=== PATIENT | female | born 1965 | race Two or more races ===

== ENCOUNTER → 2020-02-17 09:21 | Outpatient (BNVA) | payer MEDICAID, SELFPAY | PROVIDERS: PCP Internal Medicine; Referring Provider Internal Medicine; Visit Provider Dietitian, Registered | DX: Z76.89 Persons encountering health services in other specified circumstances (principal) ==

== ENCOUNTER → 2020-02-24 08:05 | Outpatient (BNVA) | payer MEDICAID, SELFPAY | PROVIDERS: PCP Internal Medicine; Referring Provider Internal Medicine; Visit Provider Dietitian, Registered | DX: Z76.89 Persons encountering health services in other specified circumstances (principal) ==

== ENCOUNTER 2021-08-07 15:27 | Outpatient (REF) | payer MEDICAID, SELFPAY ==
--- NOTE | ~2021-08-07 | MM_ITS ---
EXAMINATION: MM SCREENING DIGITAL BREAST TOMOSYNTHESIS, BILATERAL CLINICAL INFORMATION: Screening. Asymptomatic. The lifetime risk of breast cancer based on the Tyrer-Cuzick Model is 6%. COMPARISON: Mammography: 02/24/2016, 08/23/2015, 02/21/2015, 02/14/2015 TECHNIQUE: Digital breast tomosynthesis is performed in both the craniocaudal and mediolateral oblique views along with computer-aided detection (CAD). Synthesized 2D images are generated from the tomosynthesis. FINDINGS: The breasts are heterogeneously dense, which may obscure small masses (ACR BI-RADS breast composition Category c). Breast tissue composition borders on average fibroglandular. Parenchymal pattern is similar to prior studies. There are no significant masses, abnormal calcifications, or other abnormalities. No developing density. The axilla and skin contours are unremarkable. MM/MM tomosynthesis screening BI IMPRESSION: No mammographic evidence of malignancy. ASSESSMENT: BI-RADS 1: Negative RECOMMENDATION: Routine annual mammography screening. This patient's information was entered into a reminder system with a target due date for their next mammogram.
== END 2021-08-07 15:28 | disposition home or self-care (01) ==
LOC: HO.MAMMO 15:27
PROVIDERS: Visit Provider Internal Medicine
DX: Z12.31 Encounter for screening mammogram for malignant neoplasm of breast (principal)
CPT/HCPCS: 77063; 77067

== ENCOUNTER 2022-08-13 14:54 | Outpatient (REF) | payer MEDICAID, SELFPAY ==
--- NOTE | ~2022-08-13 | MM_ITS ---
EXAMINATION: MM SCREENING DIGITAL BREAST TOMOSYNTHESIS, BILATERAL CLINICAL INFORMATION: Screening. Asymptomatic. The lifetime risk of breast cancer based on the Tyrer-Cuzick Model is 5%. COMPARISON: Mammography: 08/07/2021, 02/24/2016 TECHNIQUE: Digital breast tomosynthesis is performed in both the craniocaudal and mediolateral oblique views along with computer-aided detection (CAD). Synthesized 2D images are generated from the tomosynthesis. FINDINGS: The breasts are heterogeneously dense, which may obscure small masses (ACR BI-RADS breast composition Category c). There are no significant masses, abnormal calcifications, or other abnormalities. There are minor stable bilateral asymmetries. No developing density or architectural abnormality. The axilla and skin contours are unremarkable. No significant changes. MM/MM tomosynthesis screening BI IMPRESSION: No mammographic evidence of malignancy. ASSESSMENT: BI-RADS 2: Benign RECOMMENDATION: Routine annual mammography screening. This patient's information was entered into a reminder system with a target due date for their next mammogram.
== END 2022-08-13 14:55 | disposition home or self-care (01) ==
LOC: HO.MAMMO 14:54
PROVIDERS: PCP Internal Medicine; Visit Provider Internal Medicine
DX: Z12.31 Encounter for screening mammogram for malignant neoplasm of breast (principal)
CPT/HCPCS: 77063; 77067

== ENCOUNTER 2022-11-19 08:29 | Outpatient (REF) | payer MEDICAID, SELFPAY ==
[2022-11-19 14:50] LABS: MANUAL DIFF FLAG NO
[2022-11-19 14:58] LABS: Basophils Percent Auto 0.4 % (0-2); Eosinophils Absolute Auto 0.2 X10*3/uL (0.0-0.4); Eosinophils Percent Auto 3.5 % (0-4); Hematocrit 38.4 % (37.0-47.0); Hemoglobin 11.8 g/dl (12.0-16.0); Imm Gran Abs Auto 0.02 X10*3/uL (0.00-0.03); Imm Gran Pct Auto 0.4 % (0.0-0.4); Lymphocytes Absolute Auto 1.5 X10*3/uL (1.2-4.9); Lymphocytes Percent Auto 34.1 % (20-40); Mean Corpuscular HGB Conc 30.7 g/dl (31.0-35.0); Mean Corpuscular Hemoglobin 27.1 pg (27.0-33.0); Mean Corpuscular Volume 88.1 fL (80.0-98.0); Monocytes Absolute Auto 0.2 X10*3/uL (0.1-1.2); Monocytes Percent Auto 5.3 % (2-11); Neutrophils Absolute Auto 2.5 x10*3/uL (2.0-8.3); Neutrophils Percent Auto 56.3 % (45-73); Platelet Count 201 X10*3/uL (160-400); Red Blood Count 4.36 X10*6/uL (4.20-5.50); Red Cell Distribution Width 13.8 % (11.0-16.0); White Blood Count 4.5 X10*3/uL (4.8-10.8)
[2022-11-19 15:47] LABS: Alanine Aminotransferase 11 U/L (0-31); Albumin Level 3.7 g/dL (3.5-5.0); Alkaline Phosphatase 62 U/L (39-117); Anion Gap 12 (12-20); Aspartate Amino Transferase 18 U/L (5-31); Bilirubin Total 0.6 mg/dL (0.0-1.0); Blood Urea Nitrogen 6 mg/dL (9-16); Carbon Dioxide 27 mmol/L (22-29); Chloride 110 mmol/L (96-108); Cholesterol 187 mg/dL; Estimated Glomerular Filt Rate > 60; Glucose Fasting 49 mg/dL (60-99); HDL Cholesterol 55 mg/dL; LDL Cholesterol Calculated 123 mg/dl; Potassium 3.8 mmol/L (3.3-5.1); Sodium 145 mmol/L (135-145); Total Protein 6.7 g/dL (6.5-8.0); Triglycerides 47 mg/dL
== END 2022-11-19 08:30 | disposition home or self-care (01) ==
LOC: HO.CHCLDS 08:29
PROVIDERS: Visit Provider Internal Medicine
DX: Z00.00 Encounter for general adult medical examination without abnormal findings (principal)
CPT/HCPCS: 36415; 80053; 80061; 85025

== ENCOUNTER → 2023-09-02 14:30 | Outpatient (BNV) | payer MEDICAID, SELFPAY | PROVIDERS: PCP Internal Medicine; Visit Provider Radiology Diagnostic Radiology | DX: Z12.31 Encounter for screening mammogram for malignant neoplasm of breast (principal) | CPT/HCPCS: 77063; 77067 ==

== ENCOUNTER 2023-09-02 14:36 | Outpatient (REF) | payer MEDICAID, SELFPAY ==
--- NOTE | ~2023-09-02 | MM_ITS ---
EXAMINATION: MM SCREENING DIGITAL BREAST TOMOSYNTHESIS, BILATERAL CLINICAL INFORMATION: Screening. Asymptomatic. COMPARISON: Mammography: This study is compared with prior exams dating back to 2016. TECHNIQUE: Digital breast tomosynthesis is performed in both the craniocaudal and mediolateral oblique views along with computer-aided detection (CAD). Synthesized 2D images are generated from the tomosynthesis. FINDINGS: There are scattered areas of fibroglandular density (ACR BI-RADS breast composition Category b). There are no significant masses, abnormal calcifications, or other abnormalities. MM/MM tomosynthesis screening BI IMPRESSION: No mammographic evidence of malignancy. ASSESSMENT: BI-RADS BI-RADS 1 - Negative RECOMMENDATION: Routine annual mammography screening. 1 year F/U This examination should not preclude the clinical evaluation of a suspicious palpable abnormality. This patient's information was entered into a reminder system with a target due date for their next mammogram.
== END 2023-09-02 14:37 | disposition home or self-care (01) ==
LOC: HO.MAMMO 14:36
PROVIDERS: PCP Internal Medicine; Visit Provider Internal Medicine
DX: Z12.31 Encounter for screening mammogram for malignant neoplasm of breast (principal)
CPT/HCPCS: 77063; 77067

== ENCOUNTER 2024-02-14 08:14 | Outpatient (REF) | payer MEDICAID, SELFPAY ==
[2024-02-14 14:11] LABS: MANUAL DIFF FLAG NO
[2024-02-14 14:16] LABS: Basophils Percent Auto 0.5 % (0-2); Eosinophils Absolute Auto 0.1 X10*3/uL (0.0-0.4); Eosinophils Percent Auto 2.7 % (0-4); Hematocrit 34.2 % (37.0-47.0); Hemoglobin 10.8 g/dl (12.0-16.0); Imm Gran Abs Auto 0.02 X10*3/uL (0.00-0.03); Imm Gran Pct Auto 0.5 % (0.0-0.4); Lymphocytes Absolute Auto 1.9 X10*3/uL (1.2-4.9); Lymphocytes Percent Auto 42.3 % (20-40); Mean Corpuscular HGB Conc 31.6 g/dl (31.0-35.0); Mean Corpuscular Hemoglobin 27.6 pg (27.0-33.0); Mean Corpuscular Volume 87.5 fL (80.0-98.0); Mean Platelet Volume 12.4 fL (9.4-12.3); Monocytes Absolute Auto 0.3 X10*3/uL (0.1-1.2); Monocytes Percent Auto 7.3 % (2-11); Neutrophils Absolute Auto 2.1 x10*3/uL (2.0-8.3); Neutrophils Percent Auto 46.7 % (45-73); Platelet Count 180 X10*3/uL (160-400); Red Blood Count 3.91 X10*6/uL (4.20-5.50); Red Cell Distribution Width 14.5 % (11.0-16.0); White Blood Count 4.4 X10*3/uL (4.8-10.8)
[2024-02-14 14:42] LABS: Anion Gap 9 (12-20); Blood Urea Nitrogen 13 mg/dL (9-16); Calcium 9.3 mg/dL (8.4-10.2); Carbon Dioxide 30 mmol/L (22-29); Chloride 108 mmol/L (96-108); Cholesterol 150 mg/dL (<200); Estimated Glomerular Filt Rate > 60; Glucose Fasting 65 mg/dL (60-99); HDL Cholesterol 58 mg/dL (>40); LDL Cholesterol Calculated 86 mg/dL (<100); Potassium 3.8 mmol/L (3.3-5.1); Sodium 143 mmol/L (135-145); Triglycerides 33 mg/dL (<150)
[2024-02-14 14:52] LABS: Creatinine Urine 34.04 mg/dL; Microalbumin Urine < 5.0 mg/L
[2024-02-14 15:00] LABS: TSH reflex Free T4 3.13 uIU/mL (0.32-4.0)
== END 2024-02-14 08:15 | disposition home or self-care (01) ==
LOC: HO.CHCLDS 08:14
PROVIDERS: Visit Provider Internal Medicine
DX: Z00.00 Encounter for general adult medical examination without abnormal findings (principal); I10 Essential (primary) hypertension; D12.3 Benign neoplasm of transverse colon; E16.2 Hypoglycemia, unspecified; G44.229 Chronic tension-type headache, not intractable
CPT/HCPCS: 36415; 80048; 80061; 82570; 84443; 85025

== ENCOUNTER 2024-04-01 08:44 | Outpatient (REF) | payer MEDICAID, SELFPAY ==
[2024-04-01 14:43] LABS: Iron 87 mcg/dL (30-160); Percent Iron Saturation 25 % (15-50); Total Iron Binding Capacity 344 mcg/dL (228-428); Unsaturated Iron Binding 257 ug/dL
[2024-04-01 14:57] LABS: Ferritin 14 ng/mL (10-250)
[2024-04-01 15:08] LABS: Folate 14.8 ng/mL (> or = 4.0); Vitamin B12 568 pg/mL (200-900)
== END 2024-04-01 08:45 | disposition home or self-care (01) ==
LOC: HO.CHCLDS 08:44
PROVIDERS: Visit Provider Internal Medicine
DX: D50.9 Iron deficiency anemia, unspecified (principal)
CPT/HCPCS: 36415; 82607; 82728; 82746; 83540

== ENCOUNTER 2024-08-25 16:17 | Outpatient (REF) | payer MEDICAID, SELFPAY ==
--- OUTSIDE RECORDS SUMMARY | 2024-08-25 18:47 | XMS_ITS ---
Author Organization [facility] Address [address] [facility] 7t [place] [address] Care Team Providers Care District Loss Prevention Manager Name Role Phone Marv Jones MD Primary Care Provider [phone] CHW Complex Status:Identified (Enrolling) Start date:08/14/2024 Enrollment reason:Referred by provider Overview SDOH- SDOH positive. Patient looking for assistance with transportation. Case Team Name Relationship Phone Rufina Good (Responsible Staff) Continued Care and Services Coordination
--- OUTSIDE RECORDS SUMMARY | 2024-08-25 18:47 | XMS_ITS | Encounter Summary ---
Author Organization [facility] Address [address] [facility] 7t [place] [address] Care Team Providers Care Charm Filter Operator Helper Name Role Phone Marv Jones MD Primary Care Provider [phone] Encounter Details Date Type Department Care Team (Late st Contact Info) Description 12/09/2023 Orders Only [facility] [address] [place] [address] ProviderKhanh MD Social History Tobacco Use Types Packs/Day Years Used Date Smoking Tobacco: Never Passive Smoke Exposure: Never Smokeless Tobacco: Never Alcohol Use Standard Drinks/Week Comments Never 0 (1 standard drink = 0.6 oz pur e alcohol) Depression Answer Date Recorded Patient Health Questionnaire-9 Score 7 07/18/2023 Patient Health Questionnaire-9 Score 7 07/18/2023 Last PHQ-9: Questionnaire Data Not on file 0 07/18/2023 Housing Stability Answer Date Recorded What is your housing situation today? I have fernandocecile melton 07/10/[address] you li ve. Do you have problems with any of the following? Pests such as bugs, ants, or mice 07/10/2023 Food Insecurity Answer Date Recorded Within the past 12 months, y ou worried that your food would run out before you got money to buy more: Sometimes True 2023 Within the past 12 months,th e food you bought just didn't last and you didn't have enough money to get more: Sometimes True 07/10/2023 Transportation Answer Date Recorded In the past 12 months, has l ack of transportation kept you from medical appts, meetings, work or from getting things needed for daily living? No 02/18/2023 Utilities Answer Date Recorded In the past 12 months, has t he electric, gas, oil or water company threatened to shut off services in your home? No 02/18/2023 Depression Answer Date Recorded Patient Health Questionnaire-2 Score 3 07/18/2023 Comments No Sex and Gender Information Value Date Recorded Sex Assigned at Female 03/05/2022 10:21 AM EDT Legal Sex Female 10:21 AM EDT Gender Identity Female 03/05/2022 10:21 AM EDT Sexual Orientation Straight 03/05/2022 10 :21 AM EDT documented as of this encounter Plan of Treatment Upcoming Encounters Date Type Department Care Team (Late st Contact Info) Description 12/03/2024 3:15 PM EDT Office Visit [facility] MED & PEDS [address] [place] [address] Marv Jones MD [address] [place] [address] documented as of this encounter Procedures Procedure Name Priority Date/Time Associated Diagnosis Comments COLONOSCOPY Routine 10/12/2023 2:40 PM EDT COLONOSCOPY Routine 10/10/2023 2:43 PM EDT documented in this encounter Results * Colonoscopy (10/12/2023 2:40 PM EDT) Anatomical Region Laterality Modality Endoscopy Historical Provider ENDOSCOPY PROCEDURE ORDER LUISITO Final Result * Colonoscopy (10/10/2023 2:43 PM EDT) Anatomical Region Laterality Modality Endoscopy us Historical Provider ENDOSCOPY PROCEDURE ORDER LUISITO Final Result documented in this encounter Visit Diagnoses Not on filedocumented in this encounter Additional Health Concerns Assessment Noted Time PHQ-9 Depression Total Score: 7 07/18/19 24 3:25 PM EDT documented as of this encounter Care Teams Charm Filter Operator Helper Relationship Specialty Start Date End Date Marv Jones MD [address] [place] [address] PCP - General Internal Medicine 05/06/18 documented as of this encounter
--- OUTSIDE RECORDS SUMMARY | 2024-08-25 18:47 | XMS_ITS | Encounter Summary ---
Author Organization [employer] [facility] Address [address] [facility] [address] [place] [address] Care Team Providers Care Saturator Tender Name Role Phone Marv Jones MD Primary Care Provider [phone] Reason for Visit * Reason Onset Date Comments Appointment Request 10/21/2023 Encounter Details Date Type Department Care Team ([facility] st Contact Info) Description 10/21/2023 Telephone [facility] MEDICINE [address] [place] [address] Marv Jones MD [address] [place] [address] Appointment Request Social History Tobacco Use Types Packs/Day Years [...] is your housing situation today? I have fernando melton 07/10/[address] you [...] AM EDT documented as of this encounter Miscellaneous Notes * Telephone Encounter - Jammie Case - 10/21/2023 2:24 PM EDT Tc from pt requesting up appt with PCP stated Dr Jones told her to contact clinic around this time to make an appt. documented in this encounter Plan of Treatment Upcoming Encounters Date Type Department Care Team (Late st Contact Info) Description 12/03/2024 3:15 PM EDT Office Visit [facility] MED & PEDS [address] [place] [address] Marv Jones MD [address] [place] [address] documented as of this encounter Visit Diagnoses Not on filedocumented in this encounter Additional Health Concerns Assessment Noted Time PHQ-9 Depression Total Score: 7 07/18/19 24 3:25 PM EDT documented as of this encounter Care Teams Saturator Tender Relationship Specialty Start Date End Date Marv Jones MD [address] [place] [address] PCP - General Internal Medicine 05/06/18 documented as of this encounter
--- OUTSIDE RECORDS SUMMARY | 2024-08-25 18:47 | XMS_ITS | Encounter Summary ---
Author Organization [facility] Address [address] [place] [address] Care Team Providers Care Cosmetics And Toiletries Salesperson Name Role Phone Marv Jones MD Primary Care Provider [phone] Encounter Details Date Type Department Care Team (Late Contact Info) Description 05/03/2022 Orders Only [facility] MED & PEDS [address] [place] [address] Rama Mancilla, RN [address] [place], [place] [phone] Social History Tobacco Use Types Packs/Day Years Used Date Smoking Tobacco: Never Assessed Comments Unknown Sex and Gender Information Value Date Recorded Sex Assigned at Female 03/05/2022 10:21 AM EDT Legal Sex Female 10:21 AM EDT Gender Identity Female 03/05/2022 10:21 AM EDT Sexual Orientation Straight 03/05/2022 10 :21 AM EDT documented as of this encounter Plan of Treatment Upcoming Encounters Date Type Department Care Team (Late st Contact Info) Description 12/03/2024 3:15 PM EDT Office Visit [facility] MED & PEDS [address] [place] [address] Marv Jones MD [address] [place] [address] documented as of this encounter Visit Diagnoses Not on filedocumented in this encounter Care Teams Cosmetics And Toiletries Salesperson Relationship Specialty Start Date End Date Marv Jones MD [address] [place] [address] PCP - General Internal Medicine 05/06/18 documented as of this encounter
--- OUTSIDE RECORDS SUMMARY | 2024-08-25 18:48 | XMS_ITS | Encounter Summary ---
Author Organization [email or web address] Address [address] [facility] 7t [place] [address] Care Team Providers Care Relations Specialist Name Role Phone Marv Jones MD Primary Care Provider [phone] Encounter Details Date Type Department Care Team (Late st Contact Info) Description 03/05/2023 Abstract [facility] MEDICINE [address] [place] [address] Marv Jones MD [address] [place] [address] Social History Tobacco Use Types Packs/Day Years Used Date Smoking Tobacco: Never Passive Smoke Exposure: Never Smokeless Tobacco: Never Depression Answer Date Recorded Patient Health Questionnaire-9 Score 6 07/09/2022 Housing Stability Answer Date Recorded What is your housing situation today? I have fernando melton 02/18/[address] you li ve. Do you have problems with any of the following? None of the above 02/18/2023 Food Insecurity Answer Date Recorded Within the past 12 months, y ou worried that your food would run out before you got money to buy more: Never True 02/18/2023 Within the past 12 months,th e food you bought just didn't last and you didn't have enough money to get more: Never True Transportation Answer Date Recorded In the past [...] Answer Date Recorded Patient Health Questionnaire-2 Score 2 07/09/2022 Comments Unknown Sex and Gender Information Value [...] Description 12/03/2024 3:15 PM EDT Office Visit [facility] MED [facility] PEDS [address] [place] [address] Marv Jones MD [address] [place] [address] documented as of this encounter Procedures Procedure Name Priority Date/Time Associated Diagnosis Comments COLONOSCOPY Routine 08/23/2016 documented in this encounter Results * Hm Colonoscopy (08/23/2016) Colonoscopy Normal Normal Narrative Mima Sotelo - 08/23/2016 Recommended 5 year follow up us Historical Provider HEALTH MAINTENANCE Final Result documented in this encounter Visit Diagnoses Not on filedocumented in this encounter Additional Health Concerns Assessment Noted Time PHQ-9 Depression Total Score: 6 07/10/19 23 3:25 PM EST documented as of this encounter Care Teams Relations Specialist Relationship Specialty Start Date End Date Marv Jones MD [address] [place] [address] PCP - General Internal Medicine 05/06/18 documented as of this encounter
--- OUTSIDE RECORDS SUMMARY | 2024-08-25 18:48 | XMS_ITS | Encounter Summary ---
Author Organization [employer] [facility] Address [address] [facility] 7t [place] [address] Care Team Providers Care Stave Block Roller Name Role Phone Marv Jones MD Primary Care Provider [phone] Reason for Visit * Reason Comments Med Change Request Encounter Details Date Type Department Care Team ([facility] st Contact Info) Description 08/25/2024 Refill [facility]EDS [address] [place], [place] [phone] Marv Jones MD [address] [place] [address] Muscle cramps Social History Tobacco Use Types Packs/Day Years [...] housing situation today? I have fernando melton 08/14/[address] you li ve. Do you have problems with any of the following? None of the above 08/14/2024 Food Insecurity Answer Date Recorded Within the past 12 months, y ou worried that your food would run out before you got money to buy more: Never True 08/14/2024 Within the past 12 months,th e food you bought just didn't last and you didn't have enough money to get more: Never True 03/2025 Transportation Answer Date Recorded In the past 12 months, has l ack of transportation kept you from medical appts, meetings, work or from getting things needed for daily living? Yes, it has kept me from medical appointments or getting medications. 08/14/2024 Utilities Answer Date Recorded In the past 12 months, has t he electric, gas, oil or water company threatened to shut off services in your home? No 08/14/2024 Depression Answer Date Recorded Patient Health Questionnaire-2 Score 3 07/18/2023 Internet Access Answer Date Recorded Internet Access Q1 Yes 08/14/2024 Internet Access Q2 Not on file 08/14/2024 Comments No Sex and Gender Information Value [...] Description 12/03/2024 3:15 PM EDT Office Visit [facility] MED & PEDS [address] [place] [address] Marv Jones MD [address] [place] [address] documented as of this encounter Visit Diagnoses Diagnosis Muscle cramps documented in this encounter Additional Health Concerns Assessment Noted Time PHQ-9 Depression Total Score: 7 07/18/19 24 3:25 PM EDT documented as of this encounter Care Teams Stave Block Roller Relationship Specialty Start Date End Date Marv Jones MD [address] [place] [address] PCP - General Internal Medicine 05/06/18 documented as of this encounter
--- OUTSIDE RECORDS SUMMARY | 2024-08-25 18:48 | XMS_ITS | Encounter Summary ---
Author Organization [employer] Address [address] [facility] 7[address] [place] [address] Care Team Providers Care Vault Cashier Name Role Phone Marv Jones MD Primary Care Provider [phone] Encounter Details Date Type Department Care Team ([facility] st Contact Info) Description 02/21/2024 Orders Only [facility] MED & PEDS [address] [place], [place] [phone] Marv Jones MD [address] [place] [address] Microcytic anemia (Primary Dx) Social History Tobacco Use Types Packs/Day Years [...] Upcoming Encounters Date Type Department Care Team ([facility] st Contact Info) Description 12/03/2024 3:15 PM EDT Office Visit [facility] MED & PEDS [address] [place], [place] [phone] Marv Jones MD [address] [place], [place] [phone] documented as of this encounter Procedures Procedure Name Priority Date/Time Associated Diagnosis Comments VITAMIN B12/FOLATE, SERUM PANEL Routine 04/01/2024 8:46 AM EST Microcytic anemia IRON AND TOTAL IRON BINDING CAPACITY Routine 04/01/2024 8:46 AM EST Microcytic anemia FERRITIN Routine 04/01/2024 8:46 AM EST Microcytic anemia documented in this encounter Results * Vitamin B12/Folate, Serum Panel (04/01/2024 8:46 AM EST) Vitamin B12 568 200 - 900 pg/mL [facility] Comment:NORMAL 200-900 PG/ML INDETERMINATE 160-199 PG/ML DEFICIENT < 160 PG/ML Folate 14.8 > or = 4.0 ng/mL [facility] Comment:Reference Values:> o r = 4.0 ng/mL< 4.0 ng/mL suggests folate deficiency Methotrexate, aminopterin and folinic acid(leucovorin) are chemotherapeutic agents whose molecularstructures are similar to folate; therefore, the Architectfolate assay cannot be used for patients using these drugs. Blood Venous blood specimen / Unknown 04/01/2024 8:46 AM EST 04/01/2024 2:18 PM EST us Marv Jones MD LAB BLOOD ORDERABLES Final Result Performing Organization Address [facility] Co de Phone Number [facility] [address] [place] [phone] * Ferritin (04/01/2024 8:46 AM EST) Ferritin 14 10 - 250 ng/mL [facility] Blood Venous blood specimen / Unknown 04/01/2024 8:46 AM EST 04/01/2024 2:18 PM EST us Marv Jones MD LAB BLOOD ORDERABLES Final Result Performing Organization Address [facility] de Phone Number [facility] [address] [place] [phone] * Iron And Total Iron Binding Capacity (04/01/2024 8:46 AM EST) Iron 87 30 - 160 mcg/dL [facility] Total Iron Binding Capacity 344 228 - 428 mcg/dL [facility] Percent Iron Saturation 25 15 - 50 % [facility] Unsaturated Iron Binding 257 ug/dL [facility] Blood Venous blood specimen / Unknown 04/01/2024 8:46 AM EST 04/01/2024 2:18 PM EST Marv Jones MD LAB BLOOD ORDERABLES Final Result Performing Organization Address [facility] Co de Phone Number [facility] [address] [place] [phone] documented in this encounter Visit Diagnoses Diagnosis Microcytic anemia- Primary Unspecified iron deficiency anemia documented in this encounter Additional Health Concerns Assessment Noted Time PHQ-9 Depression Total Score: 7 07/18/19 24 3:25 PM EDT documented as of this encounter Care Teams Vault Cashier Relationship Specialty Start Date End Date Marv Jones MD [address] [place] [phone] PCP - General Internal Medicine 05/06/18 documented as of this encounter
--- OUTSIDE RECORDS SUMMARY | 2024-08-25 18:48 | XMS_ITS | Clinical Summary ---
Author Organization [facility] ity Address [address] [place] [address] Care Team Providers Care Cashier Ticket Selling Name Role Phone Marv Jones MD Primary Care Provider [phone] Allergies No known active allergies Medications WHEAT DEXTRIN ORAL Wheat Dextrin (Benefiber) Powder Patient sig: Take 4 g by mouth daily. Active dextran 70-hypromellos e (ARTIFICIAL TEARS) 0.1-0.3 % ophthalmic solution apply to the eye. Active SUMAtriptan (IMITREX) 25 mg tablet Take 25 mg by mouth daily as needed. May repeat dose once after 2 hours, if needed. Active estradioL (VIVELLE-DOT) 0.1 mg/[address] 1 Patch onto the skin twice a week. Active blood-glucose meter (BLOOD GLUCOSE MONITORING MISC) Active [facility] Active glucose blood test strip glucose blood test strips (ASCENSIA AUTODISC ,ONE TOUCH ULTRA TEST ) strip Patient si Strip by In Vitro route as needed. Active OMEPRAZOLE ORAL Take by mouth. Active carbamide peroxide (DEBROX OTIC) Place in ear(s). Active cholecalcifero l (VITAMIN D-3) 1,250 mcg (50,000 unit) capsuleIndicat ions:Postsurgi alexandrea malabsorption, not elsewhere classified TAKE 1 CAPSULE BY MOUTH ONE TIME PER WEEK 8 capsule 5 Active pantoprazole (PROTONIX) 20 mg EC tablet TAKE 1 TABLET BY MOUTH 2 TIMES DAILY FOR 90 DAYS. 180 tablet 5 Active ferrous sulfate 325 mg (65 mg elemental iron) tablet TAKE 1 TABLET BY MOUTH EVERY DAY 90 tablet 5 Active pantoprazole (PROTONIX) 20 mg EC tablet TAKE 1 TABLET BY MOUTH 2 TIMES DAILY FOR 90 DAYS. 180 tablet 5 025 Discontinued ferrous sulfate 325 mg (65 mg elemental iron) tablet TAKE 1 TABLET BY MOUTH EVERY DAY 90 tablet 5 025 Discontinued cholecalcifero l (VITAMIN D-3) 1,250 mcg (50,000 unit) capsuleIndicat ions:Postsurgi alexandrea malabsorption, not elsewhere classified TAKE 1 CAPSULE BY MOUTH ONE TIME PER WEEK 8 capsule 5 025 Discontinued cholecalcifero l (VITAMIN D-3) 1,250 mcg (50,000 unit) capsuleIndicat ions:Postsurgi alexandrea malabsorption, not elsewhere classified TAKE 1 CAPSULE BY MOUTH ONE TIME PER WEEK 8 capsule 5 025 Discontinued Active Problems Problem Noted Date Diagnosed Date Class 1 obesity due to exces s calories with body mass index (BMI) of 33.0 to 33.9 in adult 04/17/2024 Medical History Medical History Date Comments Hypertension DX:Hypertension Obesity DX:Obesity Depression DX:Depression IFG (impaired fasting glucose) D X:IFG (impaired fasting glucose) Social History Tobacco Use Types Packs/Day Years Used Date Smoking Tobacco: Never Comments Unknown Sex and Gender Information Value Date Recorded Sex Assigned at Not on file Legal Sex Female 5:56 PM EST Gender Identity Not on file Sexual Orientation Not on file Obstetrics History Last Filed Vital Signs Vital Sign Reading Time Taken Comments Blood Pressure 145/90 02/27/2024 1:53 PM EDT Pulse 68 02/27/2024 1:53 PM EDT Temperature - - Respiratory Rate - - Oxygen Saturation - - Inhaled Oxygen Concentration - - Weight 78.5 kg (173 lb) 02/27/2024 1:53 PM EDT Height 160 cm (5' 3 ) 02/27/2024 1:53 PM EDT Body Mass Index 30.65 02/27/2024 1:53 PM EDT Plan of Treatment Upcoming Encounters Date Type Department Care Team (Late st Contact Info) Description 09/01/2024 1:15 PM EDT Office Visit Bariatric Surgery - [place] [facility] [address] [place] [address] Lindsey Silva MD 175 [facility] [address] [place] [address] Health Maintenance Due Date Last Done Comments Breast Cancer Screening 1965 DTaP,Tdap,and Td Vaccines (1 - Tdap) 1984 Hepatitis B Vaccines (1 of 3 - 19+ 3-dose series) 1984 Cervical Cancer Screening: P ap Smear 1986 Pneumococcal Vaccine: 50+ Ye ars (1 of 1 - PCV) 08/05/2015 Zoster Vaccines (1 of 2) 08/05/2015 Colorectal Cancer Screening: Colonoscopy 04/12/2022 Depression Screening 04/12/2022 HIV Screening 04/12/2022 Hepatitis C Screening 04/12/2022 Social Influencers of Health Screening 04/12/2022 COVID-19 Vaccine ( - 2023-2 5 season) 2024 Influenza Vaccine (Season Ended) 2025 Cholesterol Screening (Lipid Panel) 02/13/2029 02/14/2024 RSV Immunization Adult Patie nts (1 - 1-dose 75+ series) 2040 HIB Vaccines Aged Out No longer eligi ble based on patient's age to complete this topic HPV Vaccines Aged Out No longer eligi ble based on patient's age to complete this topic Hepatitis A Vaccines Aged Out No long er eligible based on patient's age to complete this topic IPV Vaccines Aged Out No longer eligi ble based on patient's age to complete this topic MMR Vaccines Aged Out No longer eligi ble based on patient's age to complete this topic Meningococcal ACWY Vaccine Aged Out N o longer eligible based on patient's age to complete this topic Meningococcal B Vaccine Aged Out No l onger eligible based on patient's age to complete this topic Pneumococcal Vaccine: Pediat rics (0 to 5 Years) and At-Risk Patients (6 to 64 Years) Aged Out No longer eligi ble based on patient's age to complete this topic RSV Immunization Patients Un madalyn 20 months Aged Out No longer eligible b ased on patient's age to complete this topic Varicella Vaccines Aged Out No longer eligible based on patient's age to complete this topic Procedures Procedure Name Priority Date/Time Associated Diagnosis Comments LIPID PANEL Routine 02/14/2024 from Last 3 Months or Most Recently Relevant to Health Maintenance Results * Lipid panel (02/14/2024) LDL/HDL Ratio 0 Comment:No Interpretation, A bstracted Triglycerides 0 mg/dL Comment:No Interpretation, A bstracted Cholesterol 0 mg/dL Comment:No Interpretation, A bstracted HDL 0 mg/dL Comment:No Interpretation, A bstracted LDL Cholesterol 0 mg/dL Comment:No Interpretation, A bstracted Blood Venous blood specimen / Unknown Historical Provider LAB BLOOD ORDERABLES Eduarda l Result from Last 3 Months or Most Recently Relevant to Health Maintenance Care Teams Cashier Ticket Selling Relationship Specialty Start Date End Date Marv Jones MD [address] [place] [address] PCP - General Internal Medicine 07/12/21
--- OUTSIDE RECORDS SUMMARY | 2024-08-25 18:48 | XMS_ITS | Encounter Summary ---
Author Organization [facility] Address [address] [place] [address] Care Team Providers Care Salt Manager Name Role Phone Marv Jones MD Primary Care Provider [phone] Reason for Visit * Reason Comments Med Change Request Encounter Details Date Type Department Care Team (Late Contact Info) Description 09/28/[address] [facility] [address] [place] [address] Marv Jones MD [address] [place] [address] Primary osteoarthritis of right knee Social History Tobacco Use Types Packs/Day Years Used Date Smoking Tobacco: Never Passive Smoke Exposure: Never Smokeless Tobacco: Never Depression Answer Date Recorded Patient Health Questionnaire-9 Score 6 07/09/2022 Depression Answer Date Recorded Patient Health Questionnaire-2 [...] Encounters Date Type Department Care Team (Late Contact Info) Description 12/03/2024 3:15 PM EDT Office Visit [facility] [address] [place] [address] Marv Jones MD [address] [place] [address] documented as of this encounter Visit Diagnoses Diagnosis Primary osteoarthritis of right knee documented in this encounter Additional Health Concerns Assessment Noted Time PHQ-9 Depression Total Score: 6 07/10/19 23 3:25 PM EST documented as of this encounter Care Teams Salt Manager Relationship Specialty Start Date End Date Marv Jones MD [address] [place] [id number] PCP - General Internal Medicine 05/06/18 documented as of this encounter
--- OUTSIDE RECORDS SUMMARY | 2024-08-25 18:48 | XMS_ITS | Clinical Summary ---
Author Organization [employer] Address [address] [facility] 7[address] [place] [address] Care Team Providers Care Director Internal Communications Name Role Phone Marv Jones MD Primary Care Provider [phone] Allergies No known active allergies Medications Elastic Bandages & Supports (Knee Support Adjustable) miscIndications:P rimary osteoarthritis of right knee To use daily 1 each 09/29/19 23 Active glucose 4 g chewable tabletIndications :Hypoglycemia Chew 4 tablets (16 g) if needed for low blood sugar. 50 tablet 12 11/20/19 23 Active ursodiol (Actigall) 300 MG capsule TAKE 2 CAPSULES BY MOUTH DAILY FOR 180 DAYS. 01/02/20 23 Active topiramate (Topamax) 25 MG tabletIndications :Chronic tension-type headache, not intractable Take 1 tablet (25 mg) by mouth every 12 (twelve) hours. 60 tablet 11 01/01/20 24 2024 Active pantoprazole (ProtoNix) 20 MG EC tablet Take 1 tablet by mouth 2 times daily. 02/18/20 24 Active SUMAtriptan (Imitrex) 25 MG tablet Take 25 mg by mouth daily as needed. May repeat dose once after 2 hours, if needed. Active glucose blood (Precision QID Test) test strip glucose blood test strips (ASCENSIA AUTODISC ,ONE TOUCH ULTRA TEST ) strip Patient si Strip by In Vitro route as needed. Active ferrous sulfate 325 (65 Fe) MG tablet Take 1 tablet by mouth Once per day. 02/28/20 24 Active dextran 70-hypromellose (GenTeal Tears) 0.1-0.3 % ophthalmic solution apply to the eye. Active cholecalciferol (Vitamin D-3) 1.25 MG (34025 UT) capsule Take 50,000 Units by mouth 1 (one) time per week. 03/20/20 24 Active estradiol (Estrace) 0.1 MG/GM vaginal cream 1g vaginally twice a week 45 g 1 08/14/19 25 Active magnesium 30 MG tabletIndications :Muscle cramps Take 1 tablet (30 mg) by mouth Once per day. 30 tablet 08/26/19 25 2025 Active Multiple Vitamins-Minerals (Bariatric Multivitamins/Iro n) capsuleIndication s:H/O bariatric surgery Take 1 tablet by mouth daily 30 capsule 08/26/19 25 Active Multiple Vitamins-Minerals (BARIATRIC MULTIVITAMINS/IRO N PO) Take 1 tablet by mouth daily 2024 Discontinued(R eorder (will not trigger notification to Pharmacy)) estradiol (Estrace) 0.1 MG/GM vaginal cream 1g vaginally every night x 14 days, then 1g vaginally twice a week after that ongoing 45 g 1 08/27/19 24 2024 Discontinued(R eorder (will not trigger notification to Pharmacy)) Active Problems Problem Noted Date Diagnosed Date Adenomatous polyp of transverse colon 07/18/2023 COVID 05/22/2022 Assessment & Plan (05/22/2022 2:13 PM EST): Patient symptoms started on 05/20/22, refers last episode of fever/chills was on the morning. Currently she is experiencing bodyaches, headaches, loss of taste and cough. Will prescribe paxlovid risk vs benefits were discussed, told to maintain well hydrated and in case of worsening symptoms to visit er Acute cough 05/22/2022 Acute tension-type headache 05/22/2022 Impaired fasting glucose 11/21/2020 Hypertension 06/15/2013 Depressive disorder 06/15/2013 Obesity 06/15/2013 Encounters Date Type Department Care Team Description 08/25/2024 3:30 PM EDT Office Visit [facility] [address] [place] [address] Marv Jones MD Chronic pain of multiple joints (Primary Dx); Pain in both hands; Muscle cramps; H/O bariatric surgery; Primary hypertension 08/25/2024 Refill [facility] [address] [place] [address] Marv Jones MD Muscle cramps 08/25/2024 Travel 08/14/2024 Patient Outreach [facility] [address] [place] [address] Marv Jones MD 08/14/2024 Patient Outreach [facility] [address] [place] [address] Marv Jones MD Pre-visit Planning (SDOH screening positive and Tobacco screening negative) 08/13/2024 2:00 PM EDT Office Visit [facility] [address] [place] [address] Jeanine Tsang CNM Visit for pelvic exam (Primary Dx); Screening examination for venereal disease; Breast cancer screening by mammogram; Impaired fasting glucose; Atrophic vaginitis 08/13/2024 Travel 07/17/2024 Population Health Risk Score [facility] ([facility]) Department [address] [place] [phone] Provider, Population Health Generic 06/23/2024 4:00 PM EST Office Visit [facility] [address] [place] [address] Chandra, Mariama, OD Presbyopia (Primary Dx) 06/23/2024 Travel from Last 3 Months Immunizations Name Administration Dates Next Due Influenza injectable quadriv alent preservative free 02/28/2022,02/21/2021,02/02/2020 Influenza, IIV3, injectable 02/21/2021,0 02/02/2020,01/19/2014,2010 Influenza, Split (incl. tete fied surface antigen) 01/28/2013 TD (adult), 2 Lf tetanus tox oid, preservative free, adsorbed 07/05/2008 Td (adult), unspecified 07/05/2008 Tdap 12/03/2016 Family History Medical History Relation Name Comments Stomach cancer Maternal Grandfather Relation Name Status Comments Maternal Grandfather Social History Tobacco Use Types Packs/Day Years [...] Orientation Straight 03/05/2022 10 :21 AM EDT Last Filed Vital Signs Vital Sign Reading Time Taken Comments Blood Pressure 127/78 08/25/2024 3:14 PM EDT Pulse 69 08/25/2024 3:14 PM EDT Temperature 36.7 ??C (98 ??F) 08/25/2024 3:14 PM EDT Respiratory Rate 20 08/25/2024 3:14 PM EDT Oxygen Saturation 98% 08/25/2024 3:14 PM EDT Inhaled Oxygen Concentration - - Weight 81.2 kg (179 lb) 08/25/2024 3:14 PM EDT Height 160 cm (5' 3 ) 08/25/2024 3:14 PM EDT Body Mass Index 31.71 08/25/2024 3:14 PM EDT Plan of Treatment Upcoming Encounters Date Type Department Care Team (Late st Contact Info) Description 12/03/2024 3:15 PM EDT Office Visit [facility] [address] [place] [address] Marv Jones MD [address] [place] [address] Health Maintenance Due Date Last Done Comments CT Colonography 1965 FIT DNA/Cologuard 1965 FIT 1965 FOBT 1965 HIV Screening 1965 Sigmoidoscopy 1965 Alcohol/Substance Use Screening 1977 Hepatitis C Screening 08/05/1983 Hepatitis B Vaccines (1 of 3 - 19+ 3-dose series) 1984 Pap Smear 1986 HPV/Cotest 08/05/1995 Pneumococcal Vaccine: 50+ Years (1 of 1 - PCV) 08/05/2015 Zoster Vaccines (1 of 2) 08/05/2015 COVID-19 Vaccine (3 - season) 2024 06/06/2021, 08/01/2020 Influenza Vaccine (#1) 2024 , 02/21/2021, 02/21/2021, Additional history exists Depression Screening 07/17/2024 07/18/2023, 07/18/19 24 Tobacco Screening 08/13/2025 08/13/2024 SDOH Screening 08/14/2025 08/14/2024 Mammogram 09/01/2025 09/02/2023, 08/04, 08/07/2021 DTaP/Tdap/Td Vaccines (2 - Td or Tdap) 12/03/2026 12/03/2016, 07/05/2008, 07/05/2008 Colonoscopy 10/11/2028 10/12/2023, 06/0 10/2023, 08/23/2016 Colorectal Cancer Screening 10/11/2028 Lipid Panel 02/13/2029 02/14/2024, 11/03, 07/15/2020 RSV Patients and Patients Aged 60 years or older (1 - 1-dose 75+ series) 2040 Cervical Cancer Screening Discontinued HIB Vaccines Aged Out No longer eligi [...] patient's age to complete this topic Meningococcal Vaccine Aged Out No vincenzo angelina eligible based on patient's age to complete this topic RSV under 20 months Aged Out No longe r eligible based on patient's age to complete this topic Rotavirus Vaccines Aged Out No longer eligible based on patient's age to complete this topic Procedures Procedure Name Priority Date/Time Associated Diagnosis Comments POCT GLYCATED HEMOGLOBIN, TOTAL Routine 08/13/2024 2:53 PM EDT Impaired fasting glucose POCT GLUCOSE Routine 08/13/2024 2:48 PM EDT Impaired fasting glucose LIPID PANEL, STANDARD Routine 02/14/2024 8:17 AM EDT Annual physical exam Primary hypertension Adenomatous polyp of transverse colon Hypoglycemia Chronic tension-type headache, not intractable COLONOSCOPY Routine 10/12/2023 2:40 PM EDT BI MAMMOGRAM SCREENING TOMOSYNTHESIS BILATERAL Routine 09/02/2023 3:00 PM EDT from Last 3 Months or Most Recently Relevant to Health Maintenance Results * (ABNORMAL) POCT HGB A1C (08/13/2024 2:53 PM EDT) Hemoglobin A1C 5.4(A) 4.0 - 6.0 % QC Media Lot # [id number] Lot# Expiration Date [id number] Blood 08/13/2024 2:53 PM EDT Jeanine Deionfelipe JUNE POINT OF CARE TEST ENTER/ EDIT ORDERABLES Final Result * POCT Glucose (08/13/2024 2:48 PM EDT) Glucose Blood, POC 94 60 - 200 mg/dL QC Media Lot # [id number] Lot# Expiration Date Blood Capillary blood specimen / Unknown 08/13/2024 2:48 PM EDT Jeanine Cardenaschefelipe [facility] POINT OF CARE TEST ENTER/ EDIT ORDERABLES Final Result * Lipid Panel, Standard (02/14/2024 8:17 AM EDT) Triglycerides 33 <150 mg/dL [facility] Comment:Desirable Triglyceri de: less than 150 mg/dLBorderline High Triglyceride 150-199 mg/dLHigh Triglyceride: 200-499 mg/dLVery High Triglyceride: greater than or equal to 5OO mg/dL Cholesterol 150 <200 mg/dL [facility] Comment:Desirable Cholestero l: less than 200 mg/dLBorderline High Cholesterol: 200-239 mg/dLHigh Cholesterol: greater than 239 mg/dL LDL Cholesterol Calculated 86 <100 mg/dL [facility] Comment:Desirable LDL: less than 100 mg/dLNear Optimal/Above Optimal LDL: 110- 129 mg/dLBorderline High LDL: 130-159 mg/dLHigh LDL: 160-189 mg/dLVery High LDL: greater than or equal to 190 mg/dL HDL Cholesterol 58 >40 mg/dL [facility] Comment:Desirable HDL: great er than 40 mg/dL Note: This HDL assay may give artificially low results in patients with liver disease. Blood Venous blood specimen / Unknown 02/14/2024 8:17 AM EDT 02/14/2024 2:05 PM EDT Marv Jones MD LAB BLOOD ORDERABLES Final Result [facility] [address] [place] [phone] * Colonoscopy (10/12/2023 2:40 PM EDT) Anatomical Region Laterality Modality Endoscopy us Historical Provider MD ENDOSCOPY PROCEDURE ORDER LUISITO Final Result * BI Mammogram Screening Tomosynthesis Bilateral (09/02/2023 3:00 PM EDT) Anatomical Region Laterality Modality Breast Bilateral Mammography 09/02/2023 3:00 PM EDT Narrative 09/29/2023 6:19 AM EDT ? [facility] [place] ? [address] ?[place] [id number] ? Mammography Report ? Signed ? Patient: Laura Pizarro ?MR#: [id number] ?? 06 ? : 1965 ?Acct:[id number] ? Age/Sex: 58 / F ?ADM Date: 09/02/23 ? Loc: HO.MAMMO ? Attending Dr: Marv Jones MD ? Ordering Physician: Marv Jones MD ?Results: 1 ?? Negative ? Date of Service: 09/02/23 ?Follow Up: 1 Year From Orig ?? inal Mammogram ? Procedure(s): MM tomosynthesis screening BI ?? Accession Number(s): [id number] ? cc: Marv Jones MD ? EXAMINATION: ?? MM SCREENING DIGITAL BREAST TOMOSYNTHESIS, BILATERAL ? CLINICAL INFORMATION: ? Screening. Asymptomatic. ? COMPARISON: ?? Mammography: This study is compared with prior exams dating back to ?? 2015. ? TECHNIQUE: ?? Digital breast tomosynthesis is performed in both the craniocaudal and ?? mediolateral oblique views along with computer-aided detection (CAD). ?? Synthesized 2D images are generated from the tomosynthesis. ? FINDINGS: ?? There are scattered areas of fibroglandular density (ACR BI-RADS breast ?? composition Category b). ? There are no significant masses, abnormal calcifications, or other ?? abnormalities. ? MM/MM tomosynthesis screening BI ?? IMPRESSION: ?? No mammographic evidence of malignancy. ? ASSESSMENT: ? BI-RADS BI-RADS 1 - Negative ? RECOMMENDATION: ?? Routine annual mammography screening. ? 1 year F/U ? This examination should not preclude the clinical evaluation of a ?? suspicious palpable abnormality. ? This patient's information was entered into a reminder system with a ?? target due date for their next mammogram. ? Dictated By: ?Nava Jones MD ? Signed By: ?<Electronically signed by Nava Jones MD in OV> ? 09/29/23 0616 ? DD/ 1500 ? TD/TT: ? Equipment Operator Wage Hand: ? Procedure Note Sarah, Image - 09/29/2023 [facility] [address] [place] [address] Mammography Report Signed Patient: Kelin Pizarro#: [id number] [birth year] : 1965Acct:[id number] Age/Sex: 58 / FADM Date: 09/02/23 Loc: HO.MAMMO Attending Dr: Marv Jones MD Ordering Physician: Marv Jones MDResults: 1 Negative Date of Service: 09/02/23Follow Up: 1 Year From Orig inal Mammogram Procedure(s): MM tomosynthesis screening BI Accession Number(s): [id number] cc: Marv Jones MD EXAMINATION: MM SCREENING DIGITAL BREAST TOMOSYNTHESIS, BILATERAL CLINICAL INFORMATION: Screening. Asymptomatic. COMPARISON: Mammography: This study is compared with prior exams dating back to 2016. TECHNIQUE: Digital breast tomosynthesis is performed in both the craniocaudal and mediolateral oblique views along with computer-aided detection (CAD). Synthesized 2D images are generated from the tomosynthesis. FINDINGS: There are scattered areas of fibroglandular density (ACR BI-RADS breast composition Category b). There are no significant masses, abnormal calcifications, or other abnormalities. MM/MM tomosynthesis screening BI IMPRESSION: No mammographic evidence of malignancy. ASSESSMENT: BI-RADS BI-RADS 1 - Negative RECOMMENDATION: Routine annual mammography screening. 1 year F/U This examination should not preclude the clinical evaluation of a suspicious palpable abnormality. This patient's information was entered into a reminder system with a target due date for their next mammogram. Dictated By: Nava Jones MD Signed By: <Electronically signed by Nava Jones MD in OV> 09/29/23 0616 DD/ 1500 TD/TT: Equipment Operator Wage Hand: Marv Jones MD IMG BI PROCEDURES Final Res ult from Last 3 Months or Most Recently Relevant to Health Maintenance Insurance C3 Care Teams Director Internal Communications Relationship Specialty Start Date End Date Marv Jones MD [address] [place] [id number] PCP - General Internal Medicine 05/06/18
--- OUTSIDE RECORDS SUMMARY | 2024-08-25 18:48 | XMS_ITS | Encounter Summary ---
Author Organization [employer] Address [address] [facility] 7t [place] [address] Care Team Providers Care Miter Cutter Name Role Phone Marv Jones MD Primary Care Provider [phone] Encounter Details Date Type Department Care Team (Latest Contact Info) Description 08/25/2024 Travel Social History Tobacco Use Types Packs/Day Years [...] Description 12/03/2024 3:15 PM EDT Office Visit [facility] [address] [place] [address] Marv Jones MD [address] [place] [address] documented as of this encounter Visit Diagnoses Not on filedocumented in this encounter Additional Health Concerns Assessment Noted Time PHQ-9 Depression Total Score: 7 07/18/19 24 3:25 PM EDT documented as of this encounter Care Teams Miter Cutter Relationship Specialty Start Date End Date Marv Jones MD [address] [place] [address] PCP - General Internal Medicine 05/06/18 documented as of this encounter
--- OUTSIDE RECORDS SUMMARY | 2024-08-25 18:48 | XMS_ITS | Encounter Summary ---
Author Organization [employer] Address 75 [facility] 7 [place] [address] Care Team Providers Care Hide Mill Worker Name Role Phone Marv Jones MD Primary Care Provider [phone] Reason for Visit * Reason Comments Multiple joint pain Hypertension Encounter Details Date Type Department Care Team ([facility] st Contact Info) Description 08/25/2024 3:30 PM EDT Office Visit [facility] MED & PEDS [address] [place], [place] [phone] Marv Jones MD [address] [place] [address] Chronic pain of multiple joints (Primary Dx); Pain in both hands; Muscle cramps; H/O bariatric surgery; Primary hypertension Social History Tobacco Use Types Packs/Day Years [...] AM EDT documented as of this encounter Last Filed Vital Signs Vital Sign Reading [...] Mass Index 31.71 08/25/2024 3:14 PM EDT documented in this encounter Progress Notes * Marv Jones MD - 08/25/2024 3:30 PM EDT SUBJECTIVE Laura Pizarro is a 59 y.o. female who presents for Multiple joint pain and Hypertension. Hypertension 1) history of hypertension. Diet controlled. Patient feels well. Denies any headache or blurry vision. 2) history of multiple joint pains especially of the hands bilaterally in the knees the ankle and the toes and the shoulders bilaterally. Patient admits morning stiffness that lasts a few minutes in the morning especially the fingers get locked. Patient also reports that she is concerned about somedeformity of the fingers bilaterally. No reported fever or other constitutional symptoms. 3) history of muscle cramps of the lower limbs and upper limbs bilaterally on and off for several months. Patient Active Problem List Diagnosis COVID Acute cough Acute tension-type headache Impaired fasting glucose Hypertension Depressive disorder Obesity Adenomatous polyp of transverse colon No Known Allergies Current Outpatient Medications on File Prior to Visit Medication Sig Dispense Refill cholecalciferol (Vitamin D-3) 1.25 MG (19473 UT) capsule Take 50,000 Units by mouth 1 (one) time per week. dextran 70-hypromellose (GenTeal Tears) 0.1-0.3 % ophthalmic solution apply to the eye. Elastic Bandages & Supports (Knee Support Adjustable) misc To use daily 1 each 0 estradiol (Estrace) 0.1 MG/GM vaginal cream 1g vaginally twice a week 45 g 1 ferrous sulfate 325 (65 Fe) MG tablet Take 1 tablet by mouth Once per day. glucose 4 g chewable tablet Chew 4 tablets (16 g) if needed for low blood sugar. 50 tablet 12 glucose blood (Precision QID Test) test strip glucose blood test strips (ASCENSIA AUTODISC ,ONE TOUCH ULTRA TEST ) strip Patient si Strip by In Vitro route as needed. pantoprazole (ProtoNix) 20 MG EC tablet Take 1 tablet by mouth 2 times daily. SUMAtriptan (Imitrex) 25 MG tablet Take 25 mg by mouth daily as needed. May repeat dose once after 2 hours, if needed. topiramate (Topamax) 25 MG tablet Take 1 tablet (25 mg) by mouth every 12 (twelve) hours. 60 ursodiol (Actigall) 300 MG capsule TAKE 2 CAPSULES BY MOUTH DAILY FOR 180 DAYS. [DISCONTINUED] Multiple Vitamins-Minerals (BARIATRIC MULTIVITAMINS/IRON PO) Take 1 tablet by mouth daily No current facility-administered medications on file prior to visit. Review of Systems OBJECTIVE Vitals: 08/25/24 1514 BP: 127/78 BP Location: Left arm Patient Position: Sitting BP Cuff Size: Adult long Pulse: 69 Resp: 20 Temp: 98 ??F (36.7 ??C) TempSrc: Oral SpO2: 98% Weight: 179 lb (81.2 kg) Height: 5' 3 (1.6 m) Physical Exam Constitutional: General: She is not in acute distress. Appearance: Normal appearance. She is not ill-appearing, toxic-appearing or diaphoretic. Cardiovascular: Rate and Rhythm: Normal rate. Pulmonary: Effort: Pulmonary effort is normal. Musculoskeletal: Comments: Heberden's nodes of the middle fingers bilaterally at the PIP and DIP joints. Neurological: Mental Status: She is alert. Assessment/Plan Assessment/Plan Diagnoses and all orders for this visit: Chronic pain of multiple joints Comments: Most likely has osteoarthritis Workup ordered to rule out a connective tissue disease. OTC glucosamine recommended with Tylenol as needed Orders: - XR Hand 3+ Views Right; Future - XR Hand 3+ Views Left; Future - OSMAN Screen,IFA, with Reflex to Titer and Pattern; Future - Rheumatoid Factor; Future - Sed Rate by Modified Westergren; Future - C-reactive Protein; Future Pain in both hands Comments: As above. Orders: - XR Hand 3+ Views Right; Future - XR Hand 3+ Views Left; Future - OSMAN Screen,IFA, with Reflex to Titer and Pattern; Future - Rheumatoid Factor; Future - Sed Rate by Modified Westergren; Future - C-reactive Protein; Future Muscle cramps Comments: Fluids with electrolytes recommended A trial of magnesium supplementation recommended. Orders: - magnesium 30 MG tablet; Take 1 tablet (30 mg) by mouth Once per day. H/O bariatric surgery - Multiple Vitamins-Minerals (Bariatric Multivitamins/Iron) capsule; Take 1 tablet by mouth daily Follow-up with the weight management program Primary hypertension Comments: Stable No change in management documented in this encounter Plan of Treatment Upcoming Encounters Date Type Department Care Team (Late st Contact Info) Description 12/03/2024 3:15 PM EDT Office Visit [facility] MED & PEDS [address] [place] [address] Marv Jones MD [address] [place] [address] Scheduled Orders Name Type Priority Associated Diagnoses Orde r Schedule XR Hand 3+ Views Right Imaging Routine Chronic pain of multiple joints Pain in both hands Expected: 08/25/2024, Expires: 08/25/2025 XR Hand 3+ Views Left Imaging Routine Chronic pain of multiple joints Pain in both hands Expected: 08/25/2024, Expires: 08/25/2025 OSMAN Screen,IFA, with Reflex to Titer and Pattern Lab Routine Chronic pain of multiple joints Pain in both hands Expected: 08/25/2024 (Approximate), Expires: 08/25/2025 Rheumatoid Factor Lab Routine Chronic pain of multiple joints Pain in both hands Expected: 08/25/2024, Expires: 08/25/2025 Sed Rate by Modified Westergren Lab Routine Chronic pain of multiple joints Pain in both hands Expected: 08/25/2024, Expires: 08/25/2025 C-reactive Protein Lab Routine Chronic pain of multiple joints Pain in both hands Expected: 08/25/2024 (Approximate), Expires: 08/25/2025 documented as of this encounter Visit Diagnoses Diagnosis Chronic pain of multiple joints- Primary Pain in both hands Muscle cramps H/O bariatric surgery Primary hypertension Unspecified essential hypertension documented in this encounter Additional Health Concerns Assessment Noted Time PHQ-9 Depression Total Score: 7 07/18/19 24 3:25 PM EDT documented as of this encounter Care Teams Hide Mill Worker Relationship Specialty Start Date End Date Marv Jones MD [address] [place] [phone] PCP - General Internal Medicine 05/06/18 documented as of this encounter
--- OUTSIDE RECORDS SUMMARY | 2024-08-25 18:48 | XMS_ITS | Encounter Summary ---
Author Organization [employer] Address 75 [facility] 7 [place] [address] Care Team Providers Care Credit Negotiator Name Role Phone Marv Jones MD Primary Care Provider [phone] Reason for Visit * Reason Onset Date Comments Durable Medical Equipment 09/27/2022 Encounter Details Date Type Department Care Team ([facility] st Contact Info) Description 09/27/2022 Telephone [facility] MED & PEDS [address] [place], [place] [phone] Marv Jones MD [address] [place] [address] Durable Medical Equipment Social History Tobacco Use Types Packs/Day Years [...] encounter Miscellaneous Notes * Telephone Encounter - Latia Good LPN - 09/27/2022 2:30 PM EDT Please read message below and advise * Telephone Encounter - Sandy Clemons - 09/27/2022 1:30 PM EDT Tc from pt requesting status on a knee brace pcp was going to requesting on last visit . documented in this encounter Plan of Treatment Upcoming Encounters Date Type Department Care Team ([facility] st Contact Info) Description 12/03/2024 3:15 PM EDT Office Visit [facility] MED & PEDS [address] [place] [address] Marv Jones MD [address] [place] [address] documented as of this encounter Visit Diagnoses Diagnosis Primary osteoarthritis of right knee- Primary documented in this encounter Additional Health Concerns Assessment Noted Time PHQ-9 Depression Total Score: 6 07/10/19 23 3:25 PM EST documented as of this encounter Care Teams Credit Negotiator Relationship Specialty Start Date End Date Marv Jones MD [address] [place] [address] PCP - General Internal Medicine 05/06/18 documented as of this encounter
[2024-08-25 18:56] LABS: Rheumatoid Factor < 13.0 IU/mL (<15.0)
[2024-08-25 19:32] LABS: Erythrocyte Sedimentation Rate 9 MM/HR (0-20)
[2024-08-26 08:34] LABS: HBS Num1 0.08 mIU/mL (0-7.99); HBc Num1 0.24 S/CO (0.00-0.79); HBsAGNum1 0.33 S/CO (0.00-0.99); HIV AB/AG Nonreactive (Nonreactive); HIV Num 1 0.08 S/CO (0.00-0.99); Hepatitis B Core Antibody Nonreactive (Nonreactive); Hepatitis B Surface Antigen Negative (Negative); ~HepC Num1 0.48 S/CO (0.00-0.79); ~Hepatitis B Surface Antibody NONREACTIVE (Nonreactive); ~Hepatitis C Antibody Nonreactive (Nonreactive)
[2024-08-26 08:48] LABS: Syphilis Screen Nonreactive (Nonreactive)
[2024-08-28 12:08] LABS: ANA Pattern 2 Nuclear, Speckled; ANA Titer 2 1:40 titer; Anti Nuclear Antibody Pattern Nuclear, Homogeneous; Anti Nuclear Antibody Screen POSITIVE (NEGATIVE); Anti Nuclear Antibody Titer 1:40 titer
== END 2024-08-25 16:18 | disposition home or self-care (01) ==
LOC: HO.CHCLDS 16:17
PROVIDERS: PCP Internal Medicine; Referring Provider Advanced Practice Midwife; Visit Provider Internal Medicine
DX: M25.50 Pain in unspecified joint (principal); G89.29 Other chronic pain; M79.641 Pain in right hand; M79.642 Pain in left hand; Z11.3 Encounter for screening for infections with a predominantly sexual mode of transmission
CPT/HCPCS: 36415; 85652; 86038; 86039; 86140; 86431; 86704; 86706; 86780; 86803; 87340; 87389

== ENCOUNTER 2024-09-02 14:07 | Outpatient (REF) | payer MEDICAID, SELFPAY ==
--- NOTE | ~2024-09-02 | XR_ITS ---
EXAMINATION: XR HAND/WRIST, RIGHT XR HAND/WRIST, LEFT CLINICAL INFORMATION: bilateral hand deformities. COMPARISON: None TECHNIQUE: PA, lateral, and Norgaard views of the each hand and wrist. FINDINGS: RIGHT HAND/WRIST: No fracture, dislocation, or suspicious bone lesion. No periarticular osteopenia. No gross periarticular erosions. Joint space narrowing with mild productive bony changes present involving the DIP joints diffusely, most significantly in the second and third digit. The PIP joints appear preserved. The MCPs appear preserved. The wrist appears grossly normal and normally aligned. There is no blunting of the ulnar styloid. No soft tissue abnormalities. LEFT HAND/WRIST: No fracture, dislocation, or suspicious bone lesion. No periarticular osteopenia. No gross periarticular erosions. Joint space narrowing with mild productive bony changes present involving the DIP joints diffusely, most significantly in the second and third digit. There is minimal ulnar deviation of the DIP joint of the second digit. The PIP joints appear preserved. The MCPs appear preserved. The wrist appears grossly normal and normally aligned. There is no blunting of the ulnar styloid. No soft tissue abnormalities. XR/XR Hand Bilat min 3v IMPRESSION: 1. 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 Predominant features are bony productive changes without periarticular erosions or periarticular osteopenia. Differential includes osteoarthrosis, early primary erosive osteoarthritis, or early changes of psoriatic arthritis. Electronically signed by: Mason Wong MD 09/02/2024 03:53 PM EDT
--- OUTSIDE RECORDS SUMMARY | 2024-09-02 15:21 | XMS_ITS | Encounter Summary ---
Author Organization [employer] Address 75 [facility] 7t [place] [address] Care Team Providers Care Transitions Manager Rn Name Role Phone Marv Jones MD Primary Care Provider [phone] Encounter Details Date Type Department Care Team ([facility] st Contact Info) Description 02/21/2024 Orders Only [facility] MED & PEDS [address] [place], [place] [phone] Marv Jones MD [address] [place] [address] Microcytic anemia (Primary Dx) Social History Tobacco [...] Upcoming Encounters Date Type Department Care Team ([facility] st Contact Info) Description 12/03/2024 3:15 PM EDT Office Visit [facility] MED & PEDS [address] [place], [place] [phone] Marv Jones MD [address] [place], [place] [phone] documented as of this encounter Procedures Procedure [...] Vitamin B12 568 200 - 900 pg/mL [facility] Comment:NORMAL 200-900 PG/ML INDETERMINATE 160-199 PG/ML DEFICIENT < 160 PG/ML Folate 14.8 > or = 4.0 ng/mL [facility] Comment:Reference Values:> o r = [...] BLOOD ORDERABLES Final Result Performing Organization Address [facility] Co de Phone Number [facility] [address] [place] [phone] * Ferritin (04/01/2024 8:46 AM EST) Ferritin 14 10 - 250 ng/mL [facility] Blood Venous blood specimen / Unknown 04/01/2024 8:46 AM EST 04/01/2024 2:18 PM EST us Marv Jones MD LAB BLOOD ORDERABLES Final Result Performing Organization Address [facility] de Phone Number [facility] [address] [place] [phone] * Iron And Total Iron Binding Capacity (04/01/2024 8:46 AM EST) Iron 87 30 - 160 mcg/dL [facility] Total Iron Binding Capacity 344 228 - 428 mcg/dL [facility] Percent Iron Saturation 25 15 - 50 % [facility] Unsaturated Iron Binding 257 ug/dL [facility] Blood Venous blood specimen / Unknown 04/01/2024 8:46 AM EST 04/01/2024 2:18 PM EST Marv Jones MD LAB BLOOD ORDERABLES Final Result Performing Organization Address [facility] Co de Phone Number [facility] [address] [place] [phone] documented in this encounter Visit Diagnoses Diagnosis Microcytic anemia- Primary Unspecified iron deficiency anemia documented in this encounter Additional Health Concerns Assessment Noted Time PHQ-9 Depression Total Score: 7 07/18/19 24 3:25 PM EDT documented as of this encounter Care Teams Transitions Manager Rn Relationship Specialty Start Date End Date Marv Jones MD [address] [place] [phone] PCP - General Internal Medicine 05/06/18 documented as of this encounter
--- OUTSIDE RECORDS SUMMARY | 2024-09-02 15:21 | XMS_ITS | Encounter Summary ---
Author Organization [employer] Address 75 [facility] 7 [place] [address] Care Team Providers Care Manager Audio Name Role Phone Marv Jones MD Primary Care Provider [phone] Reason for Visit * Reason Onset Date Comments Appointment Request 10/21/2023 Encounter Details Date Type Department Care Team ([facility] st Contact Info) Description 10/21/[address] [facility] MEDICINE [address] [place] [address] Marv Jones MD [address] [place] [address] Appointment Request Social History Tobacco Use Types [...] Description 12/03/2024 3:15 PM EDT Office Visit [facility] MED & PEDS [address] [place] [address] Marv Jones MD [address] [place] [address] documented as of this encounter Visit Diagnoses Not on filedocumented in this encounter Additional Health Concerns Assessment Noted Time PHQ-9 Depression Total Score: 7 07/18/19 24 3:25 PM EDT documented as of this encounter Care Teams Manager Audio Relationship Specialty Start Date End Date Marv Jones MD [address] [place] [address] PCP - General Internal Medicine 05/06/18 documented as of this encounter
--- OUTSIDE RECORDS SUMMARY | 2024-09-02 15:21 | XMS_ITS | Encounter Summary ---
Author Organization [employer] [facility] Address [address] [place] [address] Care Team Providers Care Manager Foreign Name Role Phone Marv Jones MD Primary Care Provider [phone] Encounter Details Date Type Department Care Team (Late Contact Info) Description 05/03/2022 Orders Only [facility] MED & PEDS [address] [place] [address] Rama Mancilla, RN [address] [place], [place] [phone] Social History Tobacco Use Types Packs/Day Years [...] Description 12/03/2024 3:15 PM EDT Office Visit [facility] MED & PED[facility] [address] [place] [address] Marv Jones MD [address] [place] [address] documented as of this encounter Visit Diagnoses Not on filedocumented in this encounter Care Teams Manager Foreign Relationship Specialty Start Date End Date Marv Jones MD [address] [place] [address] PCP - General Internal Medicine 05/06/18 documented as of this encounter
--- OUTSIDE RECORDS SUMMARY | 2024-09-02 15:21 | XMS_ITS | Encounter Summary ---
Author Organization [email or web address] Address [address] [facility] [address] [place] [address] Care Team Providers Care First Helper Name Role Phone Marv Jones MD Primary Care Provider [phone] Reason for Visit * Reason Comments Med Change Request Encounter Details Date Type Department Care Team ([facility] st Contact Info) Description 08/27/2024 Refill C [facility] MED [facility]EDS [address] [place], [place] [phone] Marv Jones MD [address] [place] [address] Muscle cramps Social History Tobacco Use Types [...] encounter Miscellaneous Notes * Telephone Encounter - Mel Osborn RN - 08/31/2024 3:39 PM EDT ----- Message from Marv Jones MD sent at 08/31/2024 2:35 PM EDT ----- Please call to inform Mrs. Laura Pizarro that one of the inflammatory markers is elevated. This could be a normal variant but we would like to get the second opinion. She will be referred to rheumatology. ----- Message ----- From: Interface, Lab Results In Sent: 08/25/2024 6:49 PM EDT To: Marv Jones MD documented in this encounter Plan of Treatment Upcoming Encounters Date Type Department Care Team (Late st Contact Info) Description 12/03/2024 3:15 PM EDT Office Visit [facility] MED & PEDS [address] [place], [place] [phone] Marv Jones MD [address] [place] [address] documented as of this encounter Visit Diagnoses Diagnosis Muscle cramps documented in this encounter Additional Health Concerns Assessment Noted Time PHQ-9 Depression Total Score: 7 07/18/19 24 3:25 PM EDT documented as of this encounter Care Teams First Helper Relationship Specialty Start Date End Date Marv Jones MD [address] [place] [phone] PCP - General Internal Medicine 05/06/18 documented as of this encounter
--- OUTSIDE RECORDS SUMMARY | 2024-09-02 15:21 | XMS_ITS | Encounter Summary ---
Author Organization [employer] Address 75 [facility] 7 [place] [address] Care Team Providers Care Occupational Health Nurse Supervisor Name Role Phone Marv Jones MD Primary Care Provider [phone] Reason for Visit * Reason Onset Date Comments Durable Medical Equipment 09/27/2022 Encounter Details Date Type Department Care Team ([facility] st Contact Info) Description 09/27/2022 Telephone [facility] PED[facility] [address] [place], [place] [phone] Marv Jones MD [address] [place] [address] Durable Medical Equipment Social History Tobacco Use [...] Upcoming Encounters Date Type Department Care Team ([facility] st Contact Info) Description 12/03/2024 3:15 PM EDT Office Visit [facility] PED[facility] [address] [place] [address] Marv Jones MD [address] [place] [address] documented as of this encounter Visit Diagnoses Diagnosis Primary osteoarthritis of right knee- Primary documented in this encounter Additional Health Concerns Assessment Noted Time PHQ-9 Depression Total Score: 6 07/10/19 23 3:25 PM EST documented as of this encounter Care Teams Occupational Health Nurse Supervisor Relationship Specialty Start Date End Date Marv Jones MD [address] [place] [address] PCP - General Internal Medicine 05/06/18 documented as of this encounter
--- OUTSIDE RECORDS SUMMARY | 2024-09-02 15:21 | XMS_ITS | Encounter Summary ---
Author Organization [facility] Address [id number] [place] [id number] Care Team Providers Care Choir Member Name Role Phone Marv Jones MD Primary Care Provider [phone] Reason for Visit * Reason Comments Follow-up 6 month follow up Encounter Details Date Type Department Care Team (Late st Contact Info) Description 09/01/2024 1:15 PM EDT Office Visit Bariatric Surgery - [place] [address] [facility] [address] [place] [phone] Lindsey Silva MD 175 [facility] [address] [place] [address] Class 1 obesity due to excess calories with body mass index (BMI) of 32.0 to 32.9 in adult, unspecified whether serious comorbidity present (Primary Dx) Social History Tobacco Use Types Packs/Day Years Used Date Smoking Tobacco: Never Comments Unknown Sex and Gender Information Value Date Recorded Sex Assigned at Not on file Legal Sex Female 5:56 PM EST Gender Identity Not on file Sexual Orientation Not on file documented as of this encounter Last Filed Vital Signs Vital Sign Reading Time Taken Comments Blood Pressure 119/73 09/01/2024 1:22 PM EDT Pulse 70 09/01/2024 1:22 PM EDT Temperature 36.6 ??C (97.8 ??F) 09/01/2024 1:22 PM ED T Respiratory Rate - - Oxygen Saturation - - Inhaled Oxygen Concentration - - Weight 83.5 kg (184 lb) 09/01/2024 1:22 PM EDT Height 160 cm (5' 3 ) 09/01/2024 1:22 PM EDT Body Mass Index 32.59 09/01/2024 1:22 PM EDT documented in this encounter Ordered Prescriptions Prescription Sig Dispense Quantity Refills Last Filled Start Date End Date topiramate (Topamax) 50 mg tabletIndications: Class 1 obesity due to excess calories with body mass index (BMI) of 32.0 to 32.9 in adult, unspecified whether serious comorbidity present Take 1 tablet (50 mg total) by mouth at bedtime. 30 each 09/01/2024 5 phentermine 15 mg capsuleIndications :Class 1 obesity due to excess calories with body mass index (BMI) of 32.0 to 32.9 in adult, unspecified whether serious comorbidity present Take 1 capsule (15 mg total) by mouth 1 (one) time each day before breakfast. Max Daily Amount: 15 mg 30 each 09/01/2024 5 documented in this encounter Progress Notes * Lindsey Silva MD - 09/01/2024 1:15 PM EDT Ms. Pizarro is a 59 y.o. year old female who presents for surgical follow up regarding obesity. HPI: Ms. Pizarro ia s/p sleeve 01/26. Has gained 11 lbs. Hungry. BMI is 32. ROS: GENERAL: No malaise, significant unintentional weight loss, fever, chills or night sweats. HEENT: No changes in hearing or vision, no nose bleeds or other nasal problems. NECK: No lumps, goiter, pain or significant neck swelling RESPIRATORY: No cough, wheezing or shortness of breath CARDIOVASCULAR: No chest pain, leg swelling or palpitations. GI: No abdominal discomfort, nausea, vomiting, or change in bowel habits. : No dysuria, frequency or incontinence. SKIN: No lesions, rash or itching. HEMATOLOGY: No prolonged bleeding, easy bruisability. LYMPHOLOGY No swollen nodes. MUSCULOSKELETAL: No abnormalities. NEURO: No abnormalities. All other systems reviewed which are negative. PAST MEDICAL HISTORY: Patient Active Problem List Diagnosis Date Noted Date Diagnosed Class 1 obesity due to excess calories with body mass index (BMI) of 33.0 to 33.9 in adult 04/17/2024 PAST SURGICAL HISTORY: No past surgical history on file. SOCIAL HISTORY: Social History Tobacco Use Smoking status: Never Smokeless tobacco: Not on file Substance Use Topics Alcohol use: Not on file FAMILY HISTORY: No family history on file. No family status information on file. MEDICATIONS: There are no discontinued medications. ACTIVE MEDICATIONS: No outpatient medications have been marked as taking for the 09/01/24 encounter (Office Visit) with Lindsey Silva MD. ALLERGIES: No Known Allergies PHYSICAL EXAM: Visit Vitals BP 119/73 Pulse 70 Temp 36.6 ??C (97.8 ??F) (Temporal) Ht 1.6 m (63 ) Wt 83.5 kg (184 lb) BMI 32.59 kg/m?? Smoking Status Never BSA 1.87 m?? APPEARANCE: Alert and oriented and in no acute distress EYES: Conjunctiva normal and sclera normal and anicteric. NECK: Neck supple with no adenopathy. HEART: RRR with normal S 1 and S 2, no murmurs, no gallops. LUNG: Clear to auscultation LYMPH NODES: No gross cervical or clavicular lymphadenopathy. ABDOMEN: Bowel sounds normoactive, soft, non-tender, non-distended, EXTREMITIES: Extremities warm and well perfused without clubbing, cyanosis, or edema. SKIN: Skin color and texture normal. No rashes or lesions. NEUROLOGIC: Alert and oriented ??3. No motor or sensory deficits in the extremities. LABS/IMAGING: ASSESSMENT: 1. Class 1 obesity due to excess calories with body mass index (BMI) of 32.0 to 32.9 in adult, unspecified whether serious comorbidity present PLAN: 1. I reviewed with the patient different techniques to change the behavior towards food. Written material was given to the patient can review these tools. I explained to the patient the need for night good sleep; the benefits of exercising half an hour to an hour a day, 4 to 5 days a week; and the importance of self-monitoring by weighing 3-5 times a week, and importance of practicing mindfulnesswhen eating: what, how much and why. Treatment of obesity after weight regain or after weight loss has stopped is justified. Studies have shown that there is a decrease in the body metabolic rate due to less adipose tissue and less weight to move around, and an increase in hunger secondary to decreases in anorexic hormones Peptin, CCKand PYY.. Obesity is a chronic metabolic disease with multiple etiologies including genetic, metabolic, biochemical, intestinal biome. The patient is a good candidate for medical weight management given a BMI of 32.59. She remains dedicated to improving their health and quality of life as well as remaining physicallyactive. I have had a long discussion with the patient regarding medical weight management which includes both oral medications including stimulants/appetite suppressants versus injectable GLP-1 medications. Oral stimulant suppressants are meant to be used short-term Studies have shown that obesity needs to be treated as a chronic condition, as such the patient mayrequire multiple modalities of treatment along the way We have decided to proceed with Phentermine/ and topiramate The risks and benefits of this medication were discussed in length with the patient. Benefits include weight loss and overall healthier lifestyle with he hopes of improving any co morbid conditions. Expected weight loss around 10% of starting weight. Risks include but are not limited too nausea/vomiting, dizziness, dry mouth, heart palpitations, tachycardia, hypertension, paresthesia, cognitive disturbances, dysgeusia, kidney stones, metabolic acidosis, defects. We have also discussed the potential for potential dependency given the stimulant quality of the medication. We discussed that this medication shouldn't be used long-term and that obesity will be treated as achronic condition; if and when patient stops this medication weight may come back. May need subsequent treatment in the future as noted above The patient will follow-up with the office every 4 weeks for a weight check and potential dose titration. F/U in the office in 3 months. Monitor BP The patient will also continue to follow-up with the dietitian to ensure that they are working on proper eating habits in addition to using the medication. The patient will let us know in few weeks if the medication is being effective or if the patient ishaving side effects. The dose will be adjusted depending upon the response and the presence of sideeffects. Follow-up in 3months. documented in this encounter Plan of Treatment Upcoming Encounters Date Type Department Care Team (Late st Contact Info) Description 12/29/2024 1:15 PM EDT Office Visit Bariatric Surgery - [place] [address] [facility] [address] [place] [phone] Lindsey Silva MD [address] [facility] [address] [facility] [address] [place] [address] documented as of this encounter Visit Diagnoses Diagnosis Class 1 obesity due to excess calories with body mass index (BMI) of 32.0 to 32.9 in adult, unspecified whether serious comorbidity present- Primary documented in this encounter Historical Medications * This list may reflect changes made after this encounter. cyanocobalamin (VITAMIN B-12) 2,500 mcg tablet Take 2 tablets (5,000 mcg total) by mouth 1 (one) time each day. added in this encounter Care Teams Choir Member Relationship Specialty Start Date End Date Marv Jones MD [address] [place] [address] PCP - General Internal Medicine 07/12/21 documented as of this encounter
--- OUTSIDE RECORDS SUMMARY | 2024-09-02 15:21 | XMS_ITS | Encounter Summary ---
Author Organization [employer] Address [address] [facility] [address] [place] [address] Care Team Providers Care Executive Talent Acquisition Consultant Name Role Phone Marv Jones MD Primary Care Provider [phone] Reason for Visit * Reason Onset Date Comments Results 08/31/2024 Encounter Details Date Type Department Care Team ([facility] st Contact Info) Description 08/31/2024 Telephone [facility] [address] [place], [place] [phone] Marv Jones MD [address] [place] [address] Results Social History Tobacco Use Types Packs/Day Years [...] Encounter - Mel Osborn RN - 08/31/2024 3:40 PM EDT TC to pt. residential subcontractor used. RN explained that one of her inflammatory markers was elevated in her lab work and this can be completely normal, however we are sending her for a second onion. Rheumatology will be calling her. Pt verbalized understanding. documented in this encounter Plan of Treatment Upcoming Encounters Date Type Department Care Team (Late st Contact Info) Description 12/03/2024 3:15 PM EDT Office Visit [facility] [address] [place] [address] Marv Jones MD [address] [place] [address] documented as of this encounter Visit Diagnoses Not on filedocumented in this encounter Additional Health Concerns Assessment Noted Time PHQ-9 Depression Total Score: 7 07/18/19 24 3:25 PM EDT documented as of this encounter Care Teams Executive Talent Acquisition Consultant Relationship Specialty Start Date End Date Marv Jones MD [address] [place] [address] PCP - General Internal Medicine 05/06/18 documented as of this encounter
--- OUTSIDE RECORDS SUMMARY | 2024-09-02 15:21 | XMS_ITS | Encounter Summary ---
Author Organization [employer] Address [address] [facility] [address] [place] [address] Care Team Providers Care Automotive Airconditioning Mechanic Name Role Phone Marv Jones MD Primary Care Provider [phone] Encounter Details Date Type Department Care Team (Late st Contact Info) Description 03/05/2023 Abstract [facility] [address] [place] [address] Marv Jones MD [address] [place] [address] Social History Tobacco Use Types Packs/Day Years [...] PM EDT Office Visit [facility] [address] [place] [address] Marv Jones MD [address] [place] [address] documented as of this encounter Procedures Procedure [...] documented as of this encounter Care Teams Automotive Airconditioning Mechanic Relationship Specialty Start Date End Date Marv Jones MD [address] [place] [address] PCP - General Internal Medicine 05/06/18 documented as of this encounter
--- OUTSIDE RECORDS SUMMARY | 2024-09-02 15:21 | XMS_ITS ---
Author Organization [facility] Address [address] [facility] [address] [place] [address] Care Team Providers Care Crap Game Box Person Name Role Phone Marv Jones MD Primary Care Provider [phone] [facility] Complex Status:Identified (Enrolling) Start date:08/14/2024 Enrollment reason:Referred by provider Overview SDOH- SDOH positive. Patient looking for assistance with transportation. Case Team Name Relationship Phone Rufina Good (Responsible Staff) Continued Care and Services Coordination
--- OUTSIDE RECORDS SUMMARY | 2024-09-02 15:21 | XMS_ITS | Clinical Summary ---
Author Organization [employer] Address [address] [facility] 7[address] [place] [address] Care Team Providers Care Clinic Md Associate Name Role Phone Marv Jones MD Primary Care Provider [phone] Allergies No known active allergies Medications Elastic [...] eye. Active cholecalciferol (Vitamin D-3) 1.25 MG (82598 UT) capsule Take 50,000 Units by mouth 1 (one) time per week. 03/20/20 24 Active estradiol (Estrace) 0.1 MG/GM vaginal cream 1g vaginally twice a week 45 g 08/14/19 25 Active Multiple Vitamins-Minerals (Bariatric Multivitamins/Iro n) capsuleIndication s:H/O bariatric surgery Take 1 tablet by mouth daily 30 capsule 08/26/19 25 Active magnesium gluconate 550 MG tabletIndications :Muscle cramps 1 tab every other day 15 tablet 09/02/19 25 Active Multiple Vitamins-Minerals (BARIATRIC MULTIVITAMINS/IRO N PO) Take 1 tablet by mouth daily 2024 Discontinued(R eorder (will not trigger notification to Pharmacy)) estradiol (Estrace) 0.1 MG/GM vaginal cream 1g vaginally every night x 14 days, then 1g vaginally twice a week after that ongoing 45 g 1 08/27/19 24 2024 Discontinued(R eorder (will not trigger notification to Pharmacy)) magnesium 30 MG tabletIndications :Muscle cramps Take 1 tablet (30 mg) by mouth Once per day. 30 tablet 08/26/19 25 2024 Discontinued magnesium gluconate 550 MG tabletIndications :Muscle cramps TAKE 1 TABLET (30 MG) BY MOUTH ONCE PER DAY. 30 tablet 08/27/19 25 2024 Discontinued(R eorder (will not trigger notification [...] Encounters Date Type Department Care Team Description 08/31/2024 Telephone [facility] [address] [place] [address] Marv Jones MD Results 08/31/2024 Orders Only [facility] [address] [place] [address] Marv Jones MD Chronic pain of multiple joints (Primary Dx); Muscle cramps 08/28/2024 Telephone [facility] [address] [place] [address] Marv Jones MD Results 08/27/2024 Refill [facility] [address] [place] [address] Marv Jones MD Muscle cramps 08/26/[address] [address] Umm Richey RN Results 08/25/2024 3:30 PM EDT Office Visit [facility] [address] [place] [address] Marv Jones MD Chronic pain of multiple joints (Primary Dx); Pain in both hands; Muscle cramps; H/O bariatric surgery; Primary hypertension 08/25/2024 Refill [facility] [address] [place] [address] Marv Jones MD Muscle cramps 08/25/2024 Travel 08/14/2024 Patient Outreach [address] [address] Marv Jones MD 08/14/2024 Patient Outreach [address] [address] Marv Jones MD Pre-visit Planning (SDOH screening positive and Tobacco screening negative) 08/13/2024 2:00 PM EDT Office Visit [facility] [address] [place] [address] Jeanine Tsang CNM Visit for pelvic exam (Primary Dx); Screening examination for venereal disease; Breast cancer screening by mammogram; Impaired fasting glucose; Atrophic vaginitis 08/13/2024 Travel 07/17/2024 Population Health Risk Score [facility] () Department [address] [place] [phone] Provider, Population Health Generic 06/23/2024 4:00 PM EST Office Visit [facility] OPTOMETRY [address] [place] [address] Chandra, Mariama, OD Presbyopia (Primary Dx) 06/23/2024 [...] Description 12/03/2024 3:15 PM EDT Office Visit [facility] CH[facility] MED & PEDS [address] [place] [address] Marv Jones MD [address] [place] [address] Health Maintenance Due Date Last Done Comments CT Colonography 1965 FIT DNA/Cologuard 1965 FIT 1965 FOBT 1965 Sigmoidoscopy 1965 Alcohol/Substance Use Screening 1977 Hepatitis B Vaccines (1 of 3 - [...] 12/03/2026 12/03/2016, 07/05/2008, 07/05/2008 Colonoscopy 10/11/2028 10/12/2023, 0610/2023, 08/23/2016 Colorectal Cancer Screening 10/11/2028 Lipid Panel 02/13/2029 02/14/2024, 11/03, 07/15/2020 RSV Patients and Patients Aged 60 years or older (1 - 1-dose 75+ series) 2040 HIV Screening Completed 08/25/2024 Hepatitis C Screening Completed 08/25/2024 Cervical Cancer Screening Discontinued HIB Vaccines Aged [...] Procedure Name Priority Date/Time Associated Diagnosis Comments C-REACTIVE PROTEIN Routine 08/25/2024 4: 22 PM EDT Chronic pain of multiple joints Pain in both hands SED RATE BY MODIFIED WESTERGREN Routine 08/25/2024 4:22 PM EDT Chronic pain of multiple joints Pain in both hands RHEUMATOID FACTOR Routine 08/25/2024 4:2 2 PM EDT Chronic pain of multiple joints Pain in both hands OSMAN SCREEN, IFA, W/REFL TITER AND PATTERN Routine 08/25/2024 4:22 PM EDT Chronic pain of multiple joints Pain in both hands HIV 1/2 ANTIGEN/ANTIBODY, FOURTH GENERATION W/RFL Routine 08/25/2024 4:22 PM EDT Screening examination for venereal disease SYPHILIS SCREEN Routine 08/25/2024 4:22 PM EDT Screening examination for venereal disease HEPATITIS C AB W/REFL TO HCV RNA, QN, PCR Routine 08/25/2024 4:22 PM EDT Screening examination for venereal disease HEPATITIS B SURFACE ANTIGEN, EIA Routine 08/25/2024 4:22 PM EDT Screening examination for venereal disease HEPATITIS B SURFACE ANTIBODY, QUALITATIVE Routine 08/25/2024 4:22 PM EDT Screening examination for venereal disease HEPATITIS B CORE AB TOTAL Routine 08/25/2024 4:22 PM EDT Screening examination for venereal disease POCT GLYCATED HEMOGLOBIN, TOTAL Routine 08/13/2024 2:53 [...] Recently Relevant to Health Maintenance Results * Syphilis Screen (08/25/2024 4:22 PM EDT) [facility] Syphilis Screen Nonreactive Nonreactive [facility] Blood Venous blood specimen / Unknown 08/25/2024 4:22 PM EDT 08/25/2024 6:17 PM EDT [facility] LAB BLOOD ORDERABLES Eduarda l Result Performing Organization Address [facility] Co de Phone Number [facility] [address] [place] [phone] * Hepatitis C Antibody with Reflex to HCV, RNA, Quantitative, Real-Time PCR (08/25/2024 4:22 PM EDT) [facility] Hepatitis C Antibody Nonreactive Nonreactive [facility] Comment:Antibodies to HCV no t detected; does not exclude early acuteHCV infection. Blood Venous blood specimen / Unknown 08/25/2024 4:22 PM EDT 08/25/2024 6:17 PM EDT [facility] LAB BLOOD ORDERABLES Eduarda l Result Performing Organization Address [facility]/ZIP Co de Phone Number [facility] [address] [place] [phone] * Hepatitis B surface antigen, EIA (08/25/2024 4:22 PM EDT) [facility] Hepatitis B Surface Ag Negative Negative [facility] Blood Venous blood specimen / Unknown 08/25/2024 4:22 PM EDT 08/25/2024 6:17 PM EDT [facility] BLOOD ORDERABLES Eduarda l Result Performing Organization Address City/[facility]/ZIP Co de Phone Number [facility] [address] [place] [phone] * Hepatitis B Core Antibody, Total (08/25/2024 4:22 PM EDT) Hepatitis B Core Antibody Nonreactive Nonreactive [facility] Blood Venous blood specimen / Unknown 08/25/2024 4:22 PM EDT 08/25/2024 6:17 PM EDT [facility] LAB BLOOD ORDERABLES Eduarda l Result Performing Organization Address [facility] de Phone Number [facility] [address] [place] [phone] * HIV-1/2 Antigen and Antibodies, Fourth Generation, with Reflexes (08/25/2024 4:22 PM EDT) Pathologist [facility] HIV AB/AG Nonreactive Nonreactive [facility] Comment:HIV-1 p24 Ag and/or HIV-1/HIV-2 Ab not detected.A test result that is nonreactive does not exclude thepossibility of exposure to or infection with HIV-1 and/orHIV-2. Nonreactive results in this assay for individualswith prior exposure to HIV-1 and/or HIV-2 may be due toantigen and antibody levels that are below the limit ofdetection of this assay.The [employer] HIV Ag/Ab Combo assay result andsupplemental assay results should be interpreted inconjunction with the patient's clinical presentation,history and other laboratory results. If the results areinconsistent with clinical evidence, additional testing issuggested to confirm the result. Blood Venous blood specimen / Unknown 08/25/2024 4:22 PM EDT 08/25/2024 6:17 PM EDT Jeanine Crawleyjone [facility] LAB BLOOD ORDERABLES Eduarda l Result Performing Organization Address [facility] Co de Phone Number [facility] [address] [place] [phone] * Hepatitis B Surface Antibody, Qualitative (08/25/2024 4:22 PM EDT) ~Hepatitis B Surface Antibody NONREACTIVE Nonreactive [facility] Comment:Nonreactive: < 8.00 mIU/mL Blood Venous blood specimen / Unknown 08/25/2024 4:22 PM EDT 08/25/2024 6:17 PM EDT Jeanine Cardenastaniya [facility] LAB BLOOD ORDERABLES Eduarda l Result Performing Organization Address [facility] Co de Phone Number [facility] [address] [place] [phone] * Sed Rate by Modified Ethanergren (08/25/2024 4:22 PM EDT) Pathologist [facility] Erythrocyte Sedimentation Rate 9 0 - 20 MM/HR [facility] Comment:Patients with polycy themia and many hemoglobin abnormalitiesmay have depressed sed rates whereas patients with anemiamay have elevated sed rates. Blood Venous blood specimen / Unknown 08/25/2024 4:22 PM EDT 08/25/2024 6:17 PM EDT Marv Jones MD LAB BLOOD ORDERABLES Final Result Performing Organization Address [facility]/ZIP Co de Phone Number [facility] [address] [place] [phone] * Rheumatoid Factor (08/25/2024 4:22 PM EDT) Rheumatoid Factor <13.0 <15.0 IU/mL [facility] Blood Venous blood specimen / Unknown 08/25/2024 4:22 PM EDT 08/25/2024 6:17 PM EDT Marv Jones MD LAB BLOOD ORDERABLES Final Result Performing Organization Address [facility] Co de Phone Number [facility] [address] [place] [phone] * C-reactive Protein (08/25/2024 4:22 PM EDT) Pathologist [facility] C Reactive Protein 0.30 < or = 0.50 mg/dL [facility] Blood Venous blood specimen / Unknown 08/25/2024 4:22 PM EDT 08/25/2024 6:17 PM EDT Marv Jones MD LAB BLOOD ORDERABLES Final Result Performing Organization Address [facility] de Phone Number [facility] [address] [place] [phone] * (ABNORMAL) OSMAN Screen,IFA, with Reflex to Titer and Pattern (08/25/2024 4:22 PM EDT) Pathologist [facility] Anti Nuclear Antibody Screen POSITIV E(A) NEGATIVE [facility] Comment:OSMAN IFA is a first l ine screen for detecting thepresence of up to approximately 150 autoantibodies invarious autoimmune diseases. A positive OSMAN IFA resultis suggestive of autoimmune disease and reflexes totiter and pattern. Further laboratory testing may beconsidered if clinically indicated.For additional information, please refer tohttp://[email or web address]/faq/KGX035(This link is being provided for informational/educational purposes only.) OSMAN Titer 1:40(A) titer [facility] Comment:A low level OSMAN tite r may be present in pre-clinicalautoimmune diseases and normal individuals. Reference Range <1:40 Negative 1:40-1:80 Low Antibody Level >1:80 Elevated Antibody Level OSMAN Pattern Nuclear , Homogen eous(A) [facility] Comment:Homogeneous pattern is associated with systemic lupuserythematosus (SLE), drug-induced lupus and juvenileidiopathic arthritis.AC-1: HomogeneousInternational Consensus on OSMAN Patterns(https://doi.org/10.1515/xiot-5924-9263) OSMAN TITER 2 (REF LAB) 1:40(A) titer [facility] Comment:A low level OSMAN tite r may be present in pre-clinicalautoimmune diseases and normal individuals. Reference Range <1:40 Negative 1:40-1:80 Low Antibody Level >1:80 Elevated Antibody Level OSMAN Pattern 2 Nuclear , Speckle d(A) [facility] Comment:Speckled pattern is associated with mixed connectivetissue disease (MCTD), systemic lupus erythematosus(SLE), Sjogren's syndrome, dermatomyositis, andsystemic sclerosis/polymyositis overlap.AC-2,4,5,29: SpeckledInternational Consensus on OSMAN Patterns(https://doi.org/10.1515/wens-7553-0737)THIS TEST WAS PERFORMED AT:[address] [place] [phone] CARLTON MD OSMAN TITER 3 TNP [facility] PAT[facility] Blood Venous blood specimen / Unknown 08/25/2024 4:22 PM EDT 08/25/2024 6:13 PM EDT us Marv Jones MD LAB BLOOD ORDERABLES Final Result [facility] [address] [place] [phone] * (ABNORMAL) POCT HGB A1C (08/13/2024 2:53 PM EDT) Hemoglobin A1C 5.4(A) 4.0 - 6.0 % QC Media Lot # [id number] Lot# Expiration Date Blood 08/13/2024 2:53 PM EDT Jeanine Tsang CNM POINT OF CARE TEST ENTER/ EDIT ORDERABLES Final Result * POCT Glucose (08/13/2024 2:48 PM EDT) Glucose Blood, POC 94 60 - 200 mg/dL QC Media Lot # [id number] Lot# Expiration Date 799 Blood Capillary blood specimen / Unknown 08/13/2024 2:48 PM EDT Jeanine WATKINS POINT OF CARE TEST ENTER/ EDIT ORDERABLES Final Result * Lipid Panel, Standard (02/14/2024 8:17 AM EDT) Triglycerides 33 <150 mg/dL [facility] Comment:Desirable Triglyceri de: less than 150 mg/dLBorderline High Triglyceride 150-199 mg/dLHigh Triglyceride: 200-499 mg/dLVery High Triglyceride: greater than or equal to 5OO mg/dL Cholesterol 150 <200 mg/dL [facility] Comment:Desirable Cholestero l: less than 200 mg/dLBorderline High Cholesterol: 200-239 mg/dLHigh Cholesterol: greater than 239 mg/dL LDL Cholesterol Calculated 86 <100 mg/dL [facility] Comment:Desirable LDL: less than 100 mg/dLNear Optimal/Above Optimal LDL: 110- 129 mg/dLBorderline High LDL: 130-159 mg/dLHigh LDL: 160-189 mg/dLVery High LDL: greater than or equal to 190 mg/dL HDL Cholesterol 58 >40 mg/dL [facility] Comment:Desirable HDL: great er than 40 mg/dL Note: This HDL assay may give artificially low results in patients with liver disease. Blood Venous blood specimen / Unknown 02/14/2024 8:17 AM EDT 02/14/2024 2:05 PM EDT Marv Jones MD LAB BLOOD ORDERABLES Final Result [facility] [address] [place] [phone] * Colonoscopy (10/12/2023 2:40 PM EDT) Anatomical Region Laterality Modality Endoscopy us Historical Provider MD ENDOSCOPY PROCEDURE ORDER LUISITO Final Result * BI Mammogram Screening Tomosynthesis Bilateral (09/02/2023 3:00 PM EDT) Anatomical Region Laterality Modality Breast Bilateral Mammography 09/02/2023 3:00 PM EDT Narrative 09/29/2023 6:19 AM EDT ? [facility] ? [address] ?[place], [place] [address] ? Mammography Report ? Signed ? Patient: Moira,Laura ?MR#: [id number] ?? 06 ? : 1965 ?Acct:[id number] ? Age/Sex: 58 / F ?ADM Date: 09/02/23 ? Loc: HO.MAMMO ? Attending Dr: Marv Jones MD ? Ordering Physician: Marv Jones MD ?Results: 1 ?? Negative ? Date of Service: 09/02/23 ?Follow Up: 1 Year From Orig ?? inal Mammogram ? Procedure(s): MM tomosynthesis screening BI ?? Accession Number(s): [id number] ? cc: Marv Jones MD ? EXAMINATION: [...] by Nava Jones MD in OV> ? 05/26/24 0616 ? DD/ 1500 ? TD/TT: ? Patented Hogshead Assembler: ? Procedure Note Sarah, Image - 09/29/2023 [facility] [address] [place] [address] Mammography Report Signed Patient: Kelin Pizarro#: [id number] 06 : 1965Acct:[id number] Age/Sex: 58 / FADM Date: 09/02/23 Loc: HO.MAMMO Attending Dr: Marv Jones MD Ordering Physician: Marv Jones MDResults: 1 Negative Date of Service: 09/02/23Follow Up: 1 Year From Orig inal Mammogram Procedure(s): MM tomosynthesis screening BI Accession Number(s): [id number] cc: Marv Jones MD EXAMINATION: MM SCREENING [...] in OV> 09/29/23 0616 DD/ 1500 TD/TT: Patented Hogshead Assembler: us Marv Jones MD IMG BI PROCEDURES Final Res ult from Last 3 Months or Most Recently Relevant to Health Maintenance Insurance C3 Care Teams Clinic Md Associate Relationship Specialty Start Date End Date Marv Jones MD [address] [place] [phone] PCP - General Internal Medicine 05/06/18
--- OUTSIDE RECORDS SUMMARY | 2024-09-02 15:21 | XMS_ITS | Encounter Summary ---
Author Organization [facility] Address [address] [place] [address] Care Team Providers Care Marine Consultant Name Role Phone Marv Jones MD Primary Care Provider [phone] Reason for Visit * Reason Comments Med Change Request Encounter Details Date Type Department Care Team (Late Contact Info) Description 09/28/2022 Refill [facility] MED & PEDS [address] [place] [address] Marv Jones MD [address] [place] [address] Primary osteoarthritis of right knee Social History [...] Description 12/03/2024 3:15 PM EDT Office Visit [facility] P[facility] [address] [place] [address] Marv Jones MD [address] [place] [address] documented as of this encounter Visit Diagnoses Diagnosis Primary osteoarthritis of right knee documented in this encounter Additional Health Concerns Assessment Noted Time PHQ-9 Depression Total Score: 6 07/10/19 23 3:25 PM EST documented as of this encounter Care Teams Marine Consultant Relationship Specialty Start Date End Date Marv Jones MD [address] [place] [address] PCP - General Internal Medicine 05/06/18 documented as of this encounter
--- OUTSIDE RECORDS SUMMARY | 2024-09-02 15:21 | XMS_ITS | Encounter Summary ---
Author Organization [employer] Address [address] [facility] [address] [place] [address] Care Team Providers Care Airport Operations Officer Name Role Phone Marv Jones MD Primary Care Provider [phone] Reason for Visit * Reason Onset Date Comments Results 08/28/2024 Encounter Details Date Type Department Care Team ([facility] st Contact Info) Description 08/28/2024 Telephone [facility] MED [facility] [address] [place], [place] [phone] Marv Jones MD [address] [place] [address] Results Social History Tobacco Use Types Packs/Day [...] encounter Miscellaneous Notes * Telephone Encounter - Crystal Jackson RN - 08/28/2024 2:35 PM EDT TC to pt to inform about elevated OSMAN results per provider instruction and informed pt of repeat labs in 3 months. Pt verbalized understanding and agreement with plan. documented in this encounter Plan of Treatment Upcoming Encounters Date Type Department Care Team (Late st Contact Info) Description 12/03/2024 3:15 PM EDT Office Visit [facility] PEDS [address] [place] [address] Marv Jones MD [address] [place] [address] documented as of this encounter Visit Diagnoses Not on filedocumented in this encounter Additional Health Concerns Assessment Noted Time PHQ-9 Depression Total Score: 7 07/18/19 24 3:25 PM EDT documented as of this encounter Care Teams Airport Operations Officer Relationship Specialty Start Date End Date Marv Jones MD [address] [place] [address] PCP - General Internal Medicine 05/06/18 documented as of this encounter
--- OUTSIDE RECORDS SUMMARY | 2024-09-02 15:21 | XMS_ITS | Encounter Summary ---
Author Organization [employer] Address [address] [facility] 7t [place] [address] Care Team Providers Care Community Health Outreach Worker Name Role Phone Marv Jones MD Primary Care Provider [phone] Encounter Details Date Type Department Care Team (Late st Contact Info) Description 12/09/2023 Orders Only [facility] [address] [place] [address] ProviderKhanh MD Social History Tobacco Use Types [...] Description 12/03/2024 3:15 PM EDT Office Visit [facility] PEDS [address] [place] [address] aMrv Jones MD [address] [place] [address] documented as of this encounter Procedures Procedure [...] documented as of this encounter Care Teams Community Health Outreach Worker Relationship Specialty Start Date End Date Marv Jones MD [address] [place] [address] PCP - General Internal Medicine 05/06/18 documented as of this encounter
--- OUTSIDE RECORDS SUMMARY | 2024-09-02 15:21 | XMS_ITS | Encounter Summary ---
Author Organization [employer] Address [address] [address] Care Team Providers Care Bale Piler Name Role Phone Marv Jones MD Primary Care Provider [phone] Reason for Referral * Consultation (Routine) - Authorized Specialty Diagnoses / Procedures Referred By Criss medrano Referred To Contact Rheumatology Diagnoses Chronic pain of multiple joints Marv Jones MD [address] [place] [address] Phone: tel: fax: [facility] [address] [place] [address] Phone: tel: fax: Referral ID Status Reason Start Date Expiration Date Visits Requested Visits Authorized [id number] Authorized Specialty Services Required 08/31/2024 08/31/2025 1 1 Encounter Details Date Type Department Care Team (Late st Contact Info) Description 08/31/2024 Orders Only [facility] MED [facility] PEDS [address] [place], [place] [phone] Marv Jones MD [address] [place], [place] [phone] Chronic pain of multiple joints (Primary Dx); Muscle cramps Social History Tobacco Use Types [...] Description 12/03/2024 3:15 PM EDT Office Visit [facility] MED [facility] PEDS [address] [place] [address] Marv Jones MD [address] [place] [address] Scheduled Referrals Name Type Priority Associated Diagnoses Order Schedule Referral to Rheumatology Outpatient Referral Routine Chronic pain of multiple joints Expected: 08/31/2024 (Approximate), Expires: 08/31/2025 documented as of this encounter Visit Diagnoses Diagnosis Chronic pain of multiple joints- Primary Muscle cramps documented in this encounter Additional Health Concerns Assessment Noted Time PHQ-9 Depression Total Score: 7 07/18/19 24 3:25 PM EDT documented as of this encounter Care Teams Bale Piler Relationship Specialty Start Date End Date Marv Jones MD [address] [place] [phone] PCP - General Internal Medicine 05/06/18 documented as of this encounter
--- OUTSIDE RECORDS SUMMARY | 2024-09-02 15:21 | XMS_ITS | Clinical Summary ---
Author Organization [address] [facility] Address [address] [place] [address] Phone Care Team Providers Care Closing Agent Name Role Phone Marv Jones MD Primary Care Provider [phone] Allergies No known active allergies Medications WHEAT DEXTRIN ORAL Wheat Dextrin (Benefiber) Powder Patient sig: Take 4 g by mouth daily. Active dextran 70-hypromellose (ARTIFICIAL TEARS) 0.1-0.3 % ophthalmic solution apply to the eye. Active SUMAtriptan (IMITREX) 25 mg tablet Take 25 mg by mouth daily as needed. May repeat dose once after 2 hours, if needed. Active estradioL (VIVELLE-DOT) 0.1 mg/[address] 1 Patch onto the skin twice a week. Active blood-glucose meter (BLOOD GLUCOSE MONITORING MISC) Active FREESTYLE LANCETS MISC Active glucose blood test strip glucose blood test strips (ASCENSIA AUTODISC ,ONE TOUCH ULTRA TEST ) strip Patient si Strip by In Vitro route as needed. Active OMEPRAZOLE ORAL Take by mouth. Active carbamide peroxide (DEBROX OTIC) Place in ear(s). Active cholecalciferol (VITAMIN D-3) 1,250 mcg (50,000 unit) capsuleIndicati ons:Postsurgica l malabsorption, not elsewhere classified TAKE 1 CAPSULE BY MOUTH ONE TIME PER WEEK 8 capsule 08/18/19 25 Active pantoprazole (PROTONIX) 20 mg EC tablet TAKE 1 TABLET BY MOUTH 2 TIMES DAILY FOR 90 DAYS. 180 tablet 08/25/19 25 Active ferrous sulfate 325 mg (65 mg elemental iron) tablet TAKE 1 TABLET BY MOUTH EVERY DAY 90 tablet 08/25/19 25 Active cyanocobalamin (VITAMIN B-12) 2,500 mcg tablet Take 2 tablets (5,000 mcg total) by mouth 1 (one) time each day. Active phentermine 15 mg capsuleIndicati ons:Class 1 obesity due to excess calories with body mass index (BMI) of 32.0 to 32.9 in adult, unspecified whether serious comorbidity present Take 1 capsule (15 mg total) by mouth 1 (one) time each day before breakfast. Max Daily Amount: 15 mg 30 each 09/02/19 25 025 Active topiramate (Topamax) 50 mg tabletIndicatio ns:Class 1 obesity due to excess calories with body mass index (BMI) of 32.0 to 32.9 in adult, unspecified whether serious comorbidity present Take 1 tablet (50 mg total) by mouth at bedtime. 30 each 09/02/19 25 025 Active pantoprazole (PROTONIX) 20 mg EC tablet TAKE 1 TABLET BY MOUTH 2 TIMES DAILY FOR 90 DAYS. 180 tablet 05/21/19 25 025 Discontinued ferrous sulfate 325 mg (65 mg elemental iron) tablet TAKE 1 TABLET BY MOUTH EVERY DAY 90 tablet 05/26/19 25 025 Discontinued cholecalciferol (VITAMIN D-3) 1,250 mcg (50,000 unit) capsuleIndicati ons:Postsurgica l malabsorption, not elsewhere classified TAKE 1 CAPSULE BY MOUTH ONE TIME PER WEEK 8 capsule 06/18/19 25 025 Discontinued cholecalciferol (VITAMIN D-3) 1,250 mcg (50,000 unit) capsuleIndicati ons:Postsurgica l malabsorption, not elsewhere classified TAKE 1 CAPSULE BY MOUTH ONE TIME PER WEEK 8 capsule 08/18/19 25 025 Discontinued Active Problems Problem Noted Date Diagnosed Date Class 1 obesity due to exces s calories with body mass index (BMI) of 33.0 to 33.9 in adult 04/17/2024 Encounters Date Type Department Care Team Description 09/01/2024 1:15 PM EDT Office Visit Bariatric Surgery - [address] [address] Lindsey Silva MD Class 1 obesity due to excess calories with body mass index (BMI) of 32.0 to 32.9 in adult, unspecified whether serious comorbidity present (Primary Dx) from Last 3 Months Medical History Medical History Date Comments Hypertension [...] Mass Index 32.59 09/01/2024 1:22 PM EDT Plan of Treatment Upcoming Encounters Date Type Department Care Team (Late st Contact Info) Description 12/29/2024 1:15 PM EDT Office Visit Bariatric Surgery - [place] [address] [facility] [address] [place] [address] Lindsey Silva MD [address] [facility] [address] [place] [address] Health Maintenance Due Date Last Done Comments Breast Cancer Screening 1965 Hepatitis B Vaccines (1 of 3 - 19+ 3-dose series) 1984 Cervical Cancer Screening: Pap Smear 1986 Pneumococcal Vaccine: 50+ Years (1 of 1 - PCV) 08/05/2015 Zoster Vaccines (1 of 2) 08/05/2015 Colorectal Cancer Screening: Colonoscopy 04/12/2022 Social Influencers of Health Screening 04/12/2022 COVID-19 Vaccine (3 - 2023- season) 2024 06/06/2021, 08/01/2020 Depression Screening 07/17/2024 07/18/2023 Influenza Vaccine (Season Ended) 2025 02/28/2022, 02/21/2021, 02/02/2020, Additional history exists Hypertension/CHF/CAD Annual BMP Blood Test 02/13/2025 02/14/2024 DTaP,Tdap,and Td Vaccines (3 - Td or Tdap) 12/03/2026 12/03/2016, 07/05/2008 Cholesterol Screening (Lipid Panel) 02/13/2029 02/14/2024, 02/14/2024 RSV Immunization Adult Patients (1 - 1-dose 75+ series) 2040 HIV Screening Completed 08/25/2024 Hepatitis C Screening Completed 08/25/2024 HIB Vaccines Aged Out No longer eligi [...] age to complete this topic Pneumococcal Vaccine: Pediatrics (0 to 5 Years) and At-Risk Patients (6 to 64 Years) Aged Out No longer eligible based on patient's age to complete this topic RSV Immunization Patients Under 20 months Aged Out No longer eligible based on patient's age to complete this topic Varicella Vaccines Aged Out No longer eligible based on patient's age to complete this topic Procedures Procedure Name Priority Date/Time Associated Diagnosis Comments ANNUAL BMP BLOOD TEST Routine 02/14/2024 LIPID PANEL Routine 02/14/2024 from Last 3 Months or Most Recently Relevant to Health Maintenance Results * Annual BMP Blood Test (02/14/2024) Pathologist [facility] Annual BMP Blood Test Abstracted us Historical Provider HEALTH MAINTENANCE Final Result * Lipid panel (02/14/2024) Pathologist [facility] LDL/HDL Ratio 0 Comment:No Interpretation, A bstracted Triglycerides 0 mg/dL Comment:No Interpretation, A bstracted Cholesterol 0 mg/dL Comment:No Interpretation, A bstracted HDL 0 mg/dL Comment:No Interpretation, A bstracted LDL Cholesterol 0 mg/dL Comment:No Interpretation, A bstracted Blood Venous blood specimen / Unknown Historical Provider LAB BLOOD ORDERABLES Eduarda l Result from Last 3 Months or Most Recently Relevant to Health Maintenance Insurance MEDICAID - [place] Care Teams Closing Agent Relationship Specialty Start Date End Date Marv Jones MD [address] [place] [address] PCP - General Internal Medicine 07/12/21
== END 2024-09-02 14:08 | disposition home or self-care (01) ==
LOC: HO.HHCX 14:07
PROVIDERS: Visit Provider Internal Medicine
DX: M79.641 Pain in right hand (principal); M79.642 Pain in left hand
CPT/HCPCS: 73130

== ENCOUNTER → 2024-09-02 14:07 | Outpatient (BNV) | payer MEDICAID, SELFPAY | PROVIDERS: Visit Provider Radiology Diagnostic Radiology | DX: M19.041 Primary osteoarthritis, right hand (principal); M19.042 Primary osteoarthritis, left hand | CPT/HCPCS: 73110; 73130 ==

== ENCOUNTER 2024-10-08 14:43 | Outpatient (REF) | payer MEDICAID, SELFPAY ==
--- NOTE | ~2024-10-08 | MM_ITS ---
EXAMINATION: MM SCREENING DIGITAL BREAST TOMOSYNTHESIS, BILATERAL CLINICAL INFORMATION: Screening. Asymptomatic. COMPARISON: Mammography: Comparison is made with available priors TECHNIQUE: Digital breast mammography with tomosynthesis is performed in both the craniocaudal and mediolateral oblique views along with computer-aided detection (CAD). FINDINGS: The breasts are heterogeneously dense, which may obscure small masses (ACR BI-RADS breast composition Category c). There are no significant masses, abnormal calcifications, or other abnormalities. MM/MM tomosynthesis screening BI IMPRESSION: No mammographic evidence of malignancy. ASSESSMENT: BI-RADS BI-RADS 1 - Negative RECOMMENDATION: Routine annual mammography screening. 1 year F/U This examination should not preclude the clinical evaluation of a suspicious palpable abnormality. This patient's information was entered into a reminder system with a target due date for their next mammogram. Electronically signed by: Celi Artis DO 10/12/2024 05:24 PM EDT
--- OUTSIDE RECORDS SUMMARY | 2024-10-08 17:21 | XMS_ITS | Encounter Summary ---
Author Organization [employer] Address [address] [facility] [address] [place] [address] Care Team Providers Care Shipping Point Inspector Name Role Phone Marv Jones MD Primary Care Provider [phone] Reason for Visit * Reason Onset Date Comments Appointment Request 10/21/2023 Encounter Details Date Type Department Care Team ([facility] st Contact Info) Description 10/21/2023 Telephone [facility] [address] [place] [address] Marv Jones MD [address] [place] [address] Appointment Request Social History Tobacco Use Types [...] Description 12/03/2024 3:15 PM EDT Office Visit [facility] [address] [place] [address] Marv Jones MD [address] [place] [address] documented as of this encounter Visit Diagnoses Not on filedocumented in this encounter Additional Health Concerns Assessment Noted Time PHQ-9 Depression Total Score: 7 07/18/19 24 3:25 PM EDT documented as of this encounter Care Teams Shipping Point Inspector Relationship Specialty Start Date End Date Marv Jones MD [address] [place] [address] PCP - General Internal Medicine 05/06/18 documented as of this encounter
== END 2024-10-08 14:44 | disposition home or self-care (01) ==
LOC: HO.MAMMO 14:43
PROVIDERS: PCP Internal Medicine; Visit Provider Internal Medicine
DX: Z12.31 Encounter for screening mammogram for malignant neoplasm of breast (principal)
CPT/HCPCS: 77063; 77067

== ENCOUNTER → 2024-10-08 14:45 | Outpatient (BNV) | payer MEDICAID, SELFPAY | PROVIDERS: PCP Internal Medicine; Visit Provider Internal Medicine | DX: Z12.31 Encounter for screening mammogram for malignant neoplasm of breast (principal) | CPT/HCPCS: 77063; 77067 ==